=== PATIENT | female | born 1960 | race Two or more races ===

== ENCOUNTER 2025-04-18 09:52 | Inpatient (IN) | payer BC, OTHER ==
[~2025-04-18] VITALS: Ht 165.1 cm; Wt 104.0 kg
--- NOTE | 2025-04-18 10:15 | ED.PDOC ---
History of Present Illness HPI Comments 65/F presents to the ER w/ prior MHx of HTN:SHx of Right foot Sx and the c/c of LE swelling. Pt reports on having ilateral LE swelling associated w/ ABD "swelling" and SOB for the past 3 weeks.In triage the pt had a BP of 208/122. PCP is Dr. Ford. Denies any other symptoms at this time. Denies chills, fever, N/V/D, CP. Denies any other associated symptom's, modifiers, or recent injuries or sick contact at this time. Chief Complaint: Extremity Swelling Time Seen by MD: 10:10 Reviewed Notes: Nurses Notes, Medications, Allergies Allergies: Coded Allergies: NO KNOWN ALLERGIES (Unverified , 04/18/25) Information Source: Patient Mode of Arrival: Ambulatory Severity: Moderate Timing: Weeks Duration: Since onset Prehospital treatment: None Past Medical History PAST MEDICAL HISTORY: HTN Surgical History (Other): Right Foot Sx LINT CLEANER History: No Pertinent LINT CLEANER History Family History Family History: Reviewed,noncontributory to illness, Unknown Social History Smoker: Non-Smoker Alcohol: Occasionally Drugs: Denies Drug Use Lives In: Home Constitutional: denies: chills, diaphoresis, fatigue, fever, malaise, sweats, weakness, others EENTM: denies: blurred vision, double vision, ear bleeding, ear discharge, ear drainage, ear pain, ear ringing, eye pain, eye redness, hearing loss, mouth pain, mouth swelling, nasal discharge, nose bleeding, nose congestion, nose pain, photophobia, tearing, throat pain, throat swelling, voice changes, others Respiratory: reports: shortness of breath; denies: cough, hemoptysis, orthopnea, SOB at rest, SOB with excertion, stridor, wheezing, others Cardiovascular: reports: edema (Bilateral LE); denies: chest pain, dizzy spells, diaphoresis, Dyspnea on exertion, irregular heart beat, left arm pain, lightheadedness, palpitations, PND, syncope, others Gastrointestinal: reports: abdomen distended; denies: abdominal pain, blood streaked bowels, constipated, diarrhea, dysphagia, difficulty swallowing, hematemesis, melena, nausea, poor appetite, poor fluid intake, rectal bleeding, rectal pain, vomiting, others Genitourinary: denies: abnormal vagina bleeding, burning, dyspareunia, dysuria, flank pain, frequency, hematuria, incontinence, pain, , vagina discharge, urgency, others Neurological: denies: dizziness, fainting, headache, left sided numbness, left sided weakness, numbness, paresthesia, pre-existing deficit, right sided numbness, right sided weakness, seizure, speech problems, tingling, tremors, weakness, others Musculoskeletal: denies: back pain, gout, joint pain, joint swelling, muscle pain, muscle stiffness, neck pain, others Integumetry: denies: bruises, change in color, change in hair/nails, dryness, laceration, lesions, lumps, rash, wounds, others Allergic/Immunocompromised: denies: Difficulty Healing, Frequent Infections, Hives, Itching, others Hematologic/Lymphatic: denies: anemia, blood clots, easy bleeding, easy bruising, swollen glands, others Endocrine: denies: excessive hunger, excessive sweating, excessive thirst, excessive urination, flushing, intolerance to cold, intolerance to heat, unexplained weight gain, unexplained weight loss, others Psychiatric: denies: anxiety, bipolar disorder, depression, hopeless, panic disorder, schizophrenia, sleepless, suicidal, others All Other Systems: Reviewed and Negative Physical Exam General Appearance: Moderate Distress, Obese HEENT: Normal ENT Inspection, Pharynx Normal, TMs Normal Neck: Full Range of Motion, Non-Tender, Normal, Normal Inspection Respiratory: Chest Non-Tender, No Accessory Muscle Use, No Respiratory Distress, Rales Cardiovascular: No Edema, No JVD, No Murmur, No Gallop, Normal Peripheral Pulses, Regular Rate/Rhythm Breast Exam: Deferred Gastrointestinal: No Organomegaly, Non Tender, No Pulsatile Mass, Normal Bowel Sounds, Soft Genitalia: Deferred Pelvic: Deferred Rectal: Deferred Extremities: No calf tenderness, Normal capillary refill, Non-tender, Pedal edema Musculoskeletal : Apperance: Normal Neurologic: Alert, orthodontist II-XII nml as Tested, No Motor Deficits, Normal Affect, Normal Mood, No Sensory Deficits Cerebellar Function: Normal Reflexes: Normal Skin: Dry, Normal Color, Warm Lymphatic: No Adenopathy Was a procedure done? Was a procedure done?: No EKG EKG : Pulse Rate (adult): 83 [place]: Normal Cardiac Rhythm: NSR Block: None Hypertrophy: None ST: Normal Differential Dx Considerations may include: Congestive heart failure, acute on chronic diastolic heart failure, ACS, OH X-Ray, Labs, Meds, VS Vital Signs Date Time Temp Pulse Resp B/P (MAP) Pulse Ox O2 Delivery O2 Flow Rate FiO2 04/18/25 11:04 98.0 81 20 190/107 (134) 97 98.0 04/18/25 10:15 83 04/18/25 10:00 83 04/18/25 09:56 87 208/122 (150) 04/18/25 09:53 98.1 89 20 203/111 95 98.1 Lab Test 04/18/25 10:28 Range/Units White Blood Count 4.5 4.4-10.8 10^3/uL Red Blood Count 4.75 4.0-5.20 10^6/uL Hemoglobin 14.0 12.2-16.2 g/dL Hematocrit 42.5 36.0-46.0 % Mean Corpuscular Volume 89.4 80.0-100.0 fL Mean Corpuscular Hemoglobin 29.4 28.0-32.0 pg Mean Corpuscular Hemoglobin Concent 32.9 32.0-36.0 g/dL Red Cell Distribution Width 15.6 H 11.8-14.3 % Platelet Count 129 L 140-450 10^3/uL Mean Platelet Volume 8.3 6.9-10.8 fL Neutrophils (%) (Auto) 65.0 37.0-80.0 % Lymphocytes (%) (Auto) 22.5 10.0-50.0 % Monocytes (%) (Auto) 10.5 0.0-12.0 % Eosinophils (%) (Auto) 0.8 0.0-7.0 % Basophils (%) (Auto) 1.2 0.0-2.0 % Neutrophils # (Auto) 2.9 1.6-8.6 10 ^3/uL Lymphocytes # (Auto) 1.0 0.4-5.4 10 ^3/uL Monocytes # (Auto) 0.5 0-1.3 10 ^3/uL Eosinophils # (Auto) 0 0-0.8 10 ^3/uL Basophils # (Auto) 0.1 0-0.2 10 ^3/uL Nucleated Red Blood Cells 0.1 % Sodium Level 137 136-145 mmol/L Potassium Level 4.0 3.5-5.1 mmol/L Chloride Level 101 98-107 mmol/L Carbon Dioxide Level 25 20-31 mmol/L Anion Gap 11 5-15 Blood Urea Nitrogen 7 L 9-23 mg/dL Creatinine 0.53 L 0.550-1.02 mg/dL Glomerular Filtration Rate Calc 102 >90 mL/min BUN/Creatinine Ratio 13.2 10.0-20.0 Serum Glucose 86 74-106 mg/dL Calcium Level 9.2 8.7-10.4 mg/dL Troponin I High Sensitivity 7 </=34 ng/L B-Type Natriuretic Peptide Pending The chest x-ray shows: IMPRESSION: Cardiomegaly with mild pulmonary vascular congestion. The patient's CBC is within normal limits The chemistry panel is within normal limits. The troponin level is negative The patient was given Lasix 40 mg IV push. The patient continues to have significant amount of pedal edema. A cardiology consult will be obtained. The patient is being admitted to the hospitalist. Images Reviewed?: Images reviewed and evaluated by me Time of 1ST Reevaluation: 10:40 Reevaluation 1ST: Unchanged Patient Education/Counseling: Diagnosis, Treatment, Prognosis Family Education/Counseling: No Family Present SEPSIS Sepsis Screen Date sepsis recognized/suspect: Apr 18, 2025 Time Sepsis recognized/suspect: 09 Recent Procedure: No On Antibiotic Therapy: No Respiratory Rate >20: No Heart Rate >90: No Temp<36 C (96.8 F) or >38.3 C: No SBP <90 or MAP <65 mmHG: No New Acute Mental Status Change: No Is the patient on CPAP, BIPAP,: No Physician Orders B-Type Natriuretic Peptide (04/18/25 10:08) Urinalysis (04/18/25 10:08) Chest Portable (04/18/25 10:08) Heplock Iv (04/18/25 10:08) Pulse Oximetry (04/18/25 10:08) Social Work Professor (04/18/25 10:08) Blood Pressure (04/18/25 10:08) Troponin-I Hs (04/18/25 11:08) Troponin-I Hs (04/18/25 13:08) Electrocardigram (04/18/25 11:13) Vital Signs Date Time Temp Pulse Resp B/P (MAP) Pulse Ox O2 Delivery O2 Flow Rate FiO2 04/18/25 11:04 98.0 81 20 190/107 (134) 97 98.0 04/18/25 10:15 83 04/18/25 10:00 83 04/18/25 09:56 87 208/122 (150) 04/18/25 09:53 98.1 89 20 203/111 95 98.1 Laboratory Tests Test 04/18/25 10:28 White Blood Count 4.5 10^3/uL (4.4-10.8) Departure 1 Departure Time of Disposition: 11:06 Impression: Primary Impression: Acute diastolic heart failure Additional Impression: Pedal edema Disposition: ADMITTED INPATIENT Admit to: Tele Condition: Fair Critical Care Note Critical Care Time?: Yes (45 min-critical care time only) Stability Stability form required: Yes Unstable for transfer: Telemetry monitoring (Telemetry monitoring required), ED Physician Assesment (Clinical assesment) Heart Score Heart Score: Heart Score Response (Comments) Value History N/A 0 EKG N/A 0 Age N/A 0 Risk Factors N/A 0 Troponin N/A 0 Total 0 I personally scribed for ALTHEA GRIFFITHS MD ([email or web address]) on 04/18/25 at 10:15. Electronically submitted by Cj Morales ([email or web address]). ALTHEA GRIFFITHS MD Apr 18, 2025 10:15
[2025-04-18 10:45] LABS: Chloride 101 mmol/L (98-107); Potassium 4.0 mmol/L (3.5-5.1); Sodium 137 mmol/L (136-145)
[2025-04-18 10:46] LABS: Anion Gap 11 (5-15); Calcium 9.2 mg/dL (8.7-10.4); Carbon Dioxide 25 mmol/L (20-31)
--- NOTE | 2025-04-18 10:47 | DVH ---
EXAM: XY CHEST PORTABLE Indication: sob Technique: Single frontal view of the chest was obtained Comparison: None FINDINGS: Lines and Tubes: None Lungs: No focal consolidation. Mild pulmonary vascular congestion. Pleura: No effusion. No pneumothorax. Cardiomediastinal contours: Cardiomegaly. Bones: No acute osseous abnormality. IMPRESSION: Cardiomegaly with mild pulmonary vascular congestion.
[2025-04-18 10:48] LABS: Hematocrit 42.5 % (36.0-46.0); Hemoglobin 14.0 g/dL (12.2-16.2); Mean Corpuscular Hemoglobin 29.4 pg (28.0-32.0); Mean Corpuscular Volume 89.4 fL (80.0-100.0); Nucleated Red Blood Cells % 0.1 %
[2025-04-18 10:51] LABS: BUN/Creatinine Ratio 13.2 (10.0-20.0); Glucose 86 mg/dL (74-106)
[2025-04-18 10:58] LABS: Blood Urea Nitrogen 7 mg/dL (9-23)
[2025-04-18] MEDS: FUROSEMIDE 40 MG/4 ML VIAL IV ONE (11:17)
[2025-04-18 11:18] VITALS: PULSE 81; RESP 20; O2SAT 97
--- NOTE | 2025-04-18 13:48 | ECG ---
[facility] Test Date: 2025-04-18 Test Time: 10:00:34 Pat Name: CHRISTIE KAUFMAN Department: ED Room: [facility] Gender: F Construction Equipment Technician: BELL : 1960 Requested By: ALTHEA GRIFFITHS Order Number: [id number] Reading MD: Be Erazo Measurements Intervals [place] Rate: 83 P: 53 TN: 190 QRS: 38 QRSD: 96 T: 86 QT: 413 QTc: 486 Interpretive Statements Sinus rhythm Nonspecific T abnrm, anterolateral leads Borderline prolonged QT interval Electronically Signed On 04-23-2025 14:18:11 PDT by Be Erazo Please click the below link to view image of tracing.
[2025-04-18] MEDS ORDERED: MORPHINE SULFATE INJ 2 MG/ml SYRG IV PRN ×2 (17:00)
[2025-04-18] MEDS ORDERED: NITROGLYCERIN 0.4 MG SL TAB SL PRN ×2 (17:00)
--- NOTE | 2025-04-18 17:52 | DVHHPRES ---
History of Present Illness Resident Creating Document: SANAZ HONG RESIDENT History of Present Illness Yolanda Ribeiro is a 65 year old female who presented to the ED with the complaint of swelling in both legs since 1 month. Patient mentions she had swelling in both lower legs which has progressed to upper legs and lower abdomen. Patient mentions elevation of the feet reduces the swelling. She denies any shortness of breath, fatigue and weakness. Patient also mentions she has had pain in the back since the last 1 week. Patient states that she has the pain on and off, is 5/10 in intensity and nonradiating. She denies any, burning sensation on micturition. Denies any recent fever or chills. Patient mentions she had an abnormal EKG 10 years back following which angiogram was done, which was found to be normal and no stenting was required. Patient was started on lasix 40mg iv bid for the pedal edema. Labs showed raised bilirubin,AST,ALT and ALP. Liver ultrasound was ordered to rule out hepatic cause of the edema. Past medical history: Hypertension Past surgical history: Tubal ligation Home medications: Lisinopril 40 once daily, metoprolol 50 mg once daily, sertraline 100 mg once daily, valacyclovir 500 mg once daily Social & Personal history: lives at home with family Smoking:denies alcohol:drinks 4 glasses of wine everyday for the last 15-20 years Allergies: no known allergies Cardiovascular: HTN Past Surgical History: Tubal Ligation Smoke: No ALCOHOL: occassional Drugs: None Lives: with Family Review of Systems Review of Systems Patient seen and examined at bedside. Patient is alert and oriented to time, place person and responding to all questions. Eyes: No Pain, No Vision change, No Conjunctivae inflammation, No Eyelid inflammation, No Redness ENT: No Ear pain, No Ear discharge, No Nose pain, No Nose discharge, No Nose congestion, No Mouth pain, No Mouth swelling, No Throat pain, No Throat swelling Cardiovascular: No Chest Pain, No Palpitations, No Orthopnea, No Paroxysmal No Dyspnea, No Edema, No Lt Headedness Respiratory: No Cough, No Dry, No Shortness of breath, No SOB with exertion, No Wheezing, No Hemoptysis, No Pleuritic Pain, No Sputum Gastrointestinal: No Nausea, No Vomiting, No Abdominal Pain, No Diarrhea, No Constipation, No Melena, No Hematochezia Genitourinary: No Dysuria, No Frequency, No Incontinence, No Hematuria, No Retention Allergies: Coded Allergies: NO KNOWN ALLERGIES (Unverified , 04/18/25) Medications Current Medications Medications Dose Ordered Sig/Ovidio Route Start Time Stop Time Status Last Admin Dose Admin Nitroglycerin 0.4 mg Q5MINP PRN SL 04/18/25 17:00 UNV Morphine Sulfate 2 mg Q30M PRN IV 04/18/25 17:00 UNV Acetaminophen 650 mg Q6HP PRN PO 04/18/25 17:00 UNV Enoxaparin Sodium 40 mg DAILY SC 04/18/25 17:00 UNV Nitroglycerin 0.4 mg Q5MINP PRN SL 04/18/25 17:00 UNV Morphine Sulfate 2 mg Q30M PRN IV 04/18/25 17:00 UNV Exam Vital Signs Vital Signs Date Time Temp Pulse Resp B/P (MAP) Pulse Ox O2 Delivery O2 Flow Rate FiO2 04/18/25 11:18 81 20 97 Room Air* 0 21 04/18/25 11:17 190/107 04/18/25 11:04 98.0 98.0 Exam General Appearance: Cooperative. Well developed. Well nourished. NAD Head Exam: Normal inspection Neck Exam: Normal inspection. Non-tender. Normal alignment Pulmonary/Respiratory: Chest non-tender. Clear bilateral breath sounds, no crackles, no wheezing. Cardiovascular/Chest: Regular rate and rhythm. No murmurs. No JVD. Peripheral Pulses: 2+ Radial (R). 2+ Radial (L). Abdominal Exam: Normal bowel sounds. Soft. normal abdomen, no visible veins, Nontender. No hepatospenomegaly. No masses.bruise prsesnt on lower abdomen around 3-4 cm X 2-3 cm Lower extremities:bilateral 2+ lower extremity edema,no erythema or warmth Neuro/Mental Status: A&O x4. Coherent. Thoughts/Psych: Normal thought pattern. Appropriate mood and affect. Good judgement and insight Skin Exam: Normal inspection. Normal color. Warm. Dry Labs/Xrays Labs Test 04/18/25 13:35 04/18/25 10:28 Range/Units Troponin I High Sensitivity 4 </=34 ng/L White Blood Count 4.5 4.4-10.8 10^3/uL Red Blood Count 4.75 4.0-5.20 10^6/uL Hemoglobin 14.0 12.2-16.2 g/dL Hematocrit 42.5 36.0-46.0 % Mean Corpuscular Volume 89.4 80.0-100.0 fL Mean Corpuscular Hemoglobin 29.4 28.0-32.0 pg Mean Corpuscular Hemoglobin Concent 32.9 32.0-36.0 g/dL Red Cell Distribution Width 15.6 H 11.8-14.3 % Platelet Count 129 L 140-450 10^3/uL Mean Platelet Volume 8.3 6.9-10.8 fL Neutrophils (%) (Auto) 65.0 37.0-80.0 % Lymphocytes (%) (Auto) 22.5 10.0-50.0 % Monocytes (%) (Auto) 10.5 0.0-12.0 % Eosinophils (%) (Auto) 0.8 0.0-7.0 % Basophils (%) (Auto) 1.2 0.0-2.0 % Neutrophils # (Auto) 2.9 1.6-8.6 10 ^3/uL Lymphocytes # (Auto) 1.0 0.4-5.4 10 ^3/uL Monocytes # (Auto) 0.5 0-1.3 10 ^3/uL Eosinophils # (Auto) 0 0-0.8 10 ^3/uL Basophils # (Auto) 0.1 0-0.2 10 ^3/uL Nucleated Red Blood Cells 0.1 % Sodium Level 137 136-145 mmol/L Potassium Level 4.0 3.5-5.1 mmol/L Chloride Level 101 98-107 mmol/L Carbon Dioxide Level 25 20-31 mmol/L Anion Gap 11 5-15 Blood Urea Nitrogen 7 L 9-23 mg/dL Creatinine 0.53 L 0.550-1.02 mg/dL Glomerular Filtration Rate Calc 102 >90 mL/min BUN/Creatinine Ratio 13.2 10.0-20.0 Serum Glucose 86 74-106 mg/dL Calcium Level 9.2 8.7-10.4 mg/dL B-Type Natriuretic Peptide 268.19 0-100 pg/mL SEPSIS Sepsis Screen Date sepsis recognized/suspect: Apr 18, 2025 Time Sepsis recognized/suspect: 954 Recent Procedure: No On Antibiotic Therapy: No Respiratory Rate >20: No Heart Rate >90: No Temp<36 C (96.8 F) or >38.3 C: No SBP <90 or MAP <65 mmHG: No New Acute Mental Status Change: No Is the patient on CPAP, BIPAP,: No Physician Orders Urinalysis (04/18/25 10:08) Chest Portable (04/18/25 10:08) Heplock Iv (04/18/25 10:08) Pulse Oximetry (04/18/25 10:08) Flight Radio Operator (04/18/25 10:08) Blood Pressure (04/18/25 10:08) Admit (04/18/25 16:49) Nitroglycerin Sublingual (Ntrostat Subli (04/18/25 17:00) Morphine Sulfate Injection (04/18/25 17:00) Stat Ekg For Chest Pain (04/18/25 16:49) Notify Md Of Changes From Base (04/18/25 16:49) Metal Lather For 24 Hours (04/18/25 16:49) Emergency Dysrhythmia Protocol (04/18/25 16:49) Rhythm Strips Once Every Shift (04/18/25 16:49) Admit (04/18/25 16:52) Code Status (04/18/25 16:52) Complete Blood Count (04/19/25 04:00) Comprehensive Metabolic Panel (04/19/25 04:00) Cardiac Diet-2gna,Lofat,Lochol (04/18/25 Dinner) Echo 2d Mode Cardiac Dop (04/18/25 16:52) Condition: Unstable (04/18/25 16:52) Acetaminophen Tablet (Tylenol Tablet) (04/18/25 17:00) Enoxaparin Sodium (Lovenox) (04/18/25 17:00) Nitroglycerin Sublingual (Ntrostat Subli (04/18/25 17:00) Morphine Sulfate Injection (04/18/25 17:00) Oxygen By Nasal Cannula (04/18/25 16:52) Emergency Dysrhythmia Protocol (04/18/25 16:52) Rhythm Strips Once Every Shift (04/18/25 16:52) Thyroid Stimulating Hormone (04/18/25 16:55) Free T4 (Free Thyroxine) (04/18/25 16:55) Cyclobenzaprine Tablet (Flexeril Tablet) (04/18/25 22:00) Vitamin D, 25-Hydroxy (04/18/25 16:57) Vitamin B12 (04/18/25 16:57) Urinalysis (04/18/25 17:03) Lisinopril Tablet (Zestril Tablet) (04/19/25 10:00) Furosemide Injection (Lasix Injection) (04/18/25 22:00) Vital Signs Date Time Temp Pulse Resp B/P (MAP) Pulse Ox O2 Delivery O2 Flow Rate FiO2 04/18/25 11:18 81 20 97 Room Air* 0 21 04/18/25 11:17 190/107 04/18/25 11:04 98.0 81 20 190/107 (134) 97 98.0 04/18/25 10:15 83 04/18/25 10:00 83 04/18/25 09:56 87 208/122 (150) 04/18/25 09:53 98.1 89 20 203/111 95 98.1 Laboratory Tests Test 04/18/25 10:28 White Blood Count 4.5 10^3/uL (4.4-10.8) Medications Medications Dose Ordered Sig/Ovidio Route Start Time Stop Time Status Last Admin Dose Admin Furosemide 40 mg ONCE ONCE IV 04/18/25 10:15 04/18/25 10:17 DC 04/18/25 11:17 40 MG Assessment/Plan Assessment/Plan # Possible Acute Systolic/Diastolic CHF- Lasix IV # Pulm Edema- Lasix IV, repeat CXR # Hypertensive Urgency- Monitor and adjust meds as needed. Get ECHO # Rule out Hepatocellular Carcinoma- CT Abd/Pelvis, Hep Panel. AFP DVT prophylaxis: Lovenox 40mg daily sc Goals of care: Full code, discussed for >23 minutes Plan discussed with Dr Souza Plan discussed with: Patient, Spouse My Orders Orders - SANAZ HONG RESIDENT Procedure Category Date Status Time Admit ADMIT 04/18/25 Transmitted 16:49 Nitroglycerin PHA 04/18/25 Logged Sublingual (Ntrostat 17:00 Morphine Sulfate PHA 04/18/25 Logged Injection 17:00 Stat Ekg For Chest JAJA 04/18/25 In Process Pain 16:49 Notify Md Of Changes JAJA 04/18/25 In Process From Base 16:[address] [facility] 04/18/25 In Process 24 Hours 16:[address] [facility] 04/18/25 In Process Protocol 16:49 Rhythm Strips [address] [facility] 04/18/25 In Process Every Shift 16:49 Admit ADMIT 04/18/25 Transmitted 16:52 Code Status CODE 04/18/25 Transmitted 16:52 Complete Blood Count LAB 04/19/25 Verified 04:00 Comprehensive LAB 04/19/25 Verified Metabolic Panel 04:00 Cardiac DIET 04/18/25 Transmitted Diet-2gna,Lofat,Lochol Dinner Echo 2d Mode Cardiac US 04/18/25 Logged DOP 16:52 Condition: Unstable [facility] 04/18/25 In Process 16:52 Acetaminophen Tablet PHA 04/18/25 Logged (Tylenol Tablet) 17:00 Enoxaparin Sodium PHA 04/18/25 Logged (Lovenox) 17:00 Nitroglycerin PHA 04/18/25 Logged Sublingual (Ntrostat 17:00 Morphine Sulfate PHA 04/18/25 Logged Injection 17:00 Oxygen By Nasal RT 04/18/25 Transmitted Cannula 16:[address] [facility] 04/18/25 In Process Protocol 16:52 Rhythm Strips Once [facility] 04/18/25 In Process Every Shift 16:52 Thyroid Stimulating LAB 04/18/25 Logged Hormone 16:55 Free T4 (Free LAB 04/18/25 Logged Thyroxine) 16:55 Cyclobenzaprine PHA 04/18/25 Logged Tablet (Flexeril 22:00 Vitamin D, 25-Hydroxy LAB 04/18/25 Logged 16:57 Vitamin B12 LAB 04/18/25 Logged 16:57 Urinalysis LAB 04/18/25 Transmitted 17:03 Date of Service: Apr 18, 2025 Billing Provider: DEE SOUZA MD Common Visit Codes: 25240-[id number] INP/OBS CARE (HIGH) Secondary Visit Codes: 02545-[id number] CARE PLAN 30 MINUTES SANAZ HONG RESIDENT Apr 18, 2025 17:52 DEE SOUZA MD Apr 19, 2025 09:37
[2025-04-18] MEDS ORDERED: LISI40TA16 PO (18:02)
[2025-04-18] MEDS ORDERED: VALA1TAB PO (18:03)
[2025-04-18] MEDS ORDERED: SERT100T PO (18:03)
[2025-04-18] MEDS ORDERED: METO-158 PO (18:04)
[2025-04-18 18:06] LABS: Alanine Aminotransferase 61.0 U/L (7-40); Albumin 4.0 g/dL (3.2-4.8); Alkaline Phosphatase 161.0 U/L (46-116); Bilirubin, Direct 0.8 mg/dL (<0.3); Bilirubin, Total 1.8 mg/dL (0.2-1.0); Total Protein 7.3 g/dL (5.7-8.2)
[2025-04-18] MEDS: FUROSEMIDE 40 MG/4 ML VIAL IV SCH (18:15)
[2025-04-18] MEDS: ENOXAPARIN SOD 40 MG/0.4 ML SYRINGE SC SCH (18:15)
[2025-04-18] MEDS: LISINOPRIL 20 MG TAB PO ONE (18:16)
[2025-04-18 20:32] VITALS: BP 146/72; PULSE 64; PULSE 67; RESP 18; TEMP 98; O2SAT 62; O2SAT 95
[2025-04-18 21:00] VITALS: BP 169/102; PULSE 88; RESP 16; TEMP 98.2; O2SAT 96
--- NOTE | 2025-04-18 21:23 | DVH ---
INDICATION: transamnitis TECHNIQUE: Multiple real-time sonographic images of the abdomen were obtained. COMPARISON: None FINDINGS: Hepatic parenchyma demonstrates coarse echogenic appearance consistent with steatosis. The liver measures 12.53 cm. No intrahepatic biliary ductal dilatation is noted. Hypoechoic mass right l obe of the liver measuring 5.38 x 4.95 by [address] of the abdomen with contrast. The gallbladder wall measures 2.38 mm cm and is unremarkable. No gallstones or sludge is seen. The common duct measures 5.35 mm cm and is unremarkable. No pericholecystic fluid is noted. Negative so nographic Lopez's sign The right kidney measures 10.78 cm. No hydronephrosis. The pancreas is not well visualized due to obscuration from bowel gas. The visualized portions of the IVC and aorta are grossly unremarkable. IMPRESSION: 1. 12.5 cm liver with parenchymal changes consistent with steatosis 2. 5.4 x 4.9 x 4.5 cm ill-defined heterogeneous mass right lobe of the liver consider re-evaluation w ith CT abdomen with contrast.
[2025-04-18] MEDS: ERGOCALCIFEROL 50,000 UNIT(1.25MG) CAP PO SCH (21:26)
[2025-04-18] MEDS: CYCLOBENZAPRINE HCL 10 MG TAB PO ONE (21:26)
[2025-04-19] VITALS (7 sets, daily range): BP systolic 123–160; BP diastolic 65–91; PULSE 75–86; RESP 16–18; TEMP 97.7–98.5; O2SAT 94–97
[2025-04-19 07:13] LABS: Hematocrit 38.8 % (36.0-46.0); Hemoglobin 13.2 g/dL (12.2-16.2); Mean Corpuscular Hemoglobin 30.3 pg (28.0-32.0); Mean Corpuscular Volume 88.8 fL (80.0-100.0); Nucleated Red Blood Cells % 0.2 %
[2025-04-19 07:19] LABS: Anion Gap 12 (5-15); BUN/Creatinine Ratio 13.3 (10.0-20.0); Calcium 8.8 mg/dL (8.7-10.4); Carbon Dioxide 29 mmol/L (20-31); Sodium 139 mmol/L (136-145); Total Protein 6.4 g/dL (5.7-8.2)
[2025-04-19 07:21] LABS: Albumin 3.5 g/dL (3.2-4.8)
[2025-04-19 07:35] LABS: Alanine Aminotransferase 52 U/L (7-40); Alkaline Phosphatase 138 U/L (46-116); Bilirubin, Total 1.6 mg/dL (0.2-1.0); Blood Urea Nitrogen 8 mg/dL (9-23); Chloride 98 mmol/L (98-107); Glucose 69 mg/dL (74-106); Potassium 3.2 mmol/L (3.5-5.1)
--- NOTE | 2025-04-19 09:03 | DVH ---
US BiLat Lower DVT HISTORY: To rule out dVT COMPARISON: None TECHNIQUE: Duplex doppler evaluation of the deep venous system of the lower extremity from the common femoral veins, superficial femoral vein, great saphenous vein, deep femoral vein, popliteal vein, an d calf veins, including color doppler and spectral/pulsed waveform analysis, was performed. FINDINGS: Right: - Common femoral vein: Compressible - Deep femoral vein: Compressible - Femoral vein: Compressible - Popliteal vein: Compressible - Other: Nothing Left: - Common femoral vein: Compressible - Deep femoral vein: Compressible - Femoral vein: Compressible - Popliteal vein: Compressible - Other: Nothing IMPRESSION: No right or left lower extremity deep venous thrombosis.
[2025-04-19] MEDS: LISINOPRIL 20 MG TAB PO SCH (11:00)
[2025-04-19] MEDS: IOHEXOL 300 MG/ML 100ML BOTTLE IJ ONE (11:42)
[2025-04-19 12:09] LABS: INR 1.11 (0.9-1.15); Partial Thromboplastin Time 29.8 SEC (24.5-34.5); Prothrombin Time 11.6 sec (9.3-11.8)
[2025-04-19] MEDS: hydrALAZINE HCL 20 MG/ML VL IV PRN (13:22)
[2025-04-19] MEDS: ACETAMINOPHEN 325 MG TAB PO PRN (13:23)
--- NOTE | 2025-04-19 14:11 | DVH ---
Indication: LIVER MASS Technique: CT axial images of the abdomen and pelvis are obtained with and without contrast. Coronal and sagittal reformats were obtained. Comparison: 04/18/2025 FINDINGS: Cardiomegaly lung bases demonstrate atelectasis. Renal glands are unremarkable. Spleen measures 13 cm AP. Pancreas unremarkable. Cholelithiasis. Cirrhotic morphology liver. There is a right hepatic dome hypervascular lesion measuring 9.5 x 7 cm which demonstrates hypervascu larity on the portal venous and 5 minute delayed images. The kidneys demonstrate no hydronephrosis. Stomach is partially distended. Small bowel loops are normal in caliber. Moderate volume stool in the colon. Normal appendix. Abdominal aortic atherosclerotic disease. Bladder is partially distended. No free pelvic fluid. No i nguinal lymphadenopathy. Soft tissue edema/ anasarca. Moderate lumbar degenerative disc disease and facet hypertrophic changes. IMPRESSION: Hypervascular lesion on the arterial, venous and delayed phases within the right hepatic lobe measuri ng 9.5 x 7 cm. Recommend multiphasic MRI abdomen with and without contrast to further characterize. N o definitive washout seen. Correlate with alpha fetoprotein levels. Consideration could also be given to tissue sampling Cirrhotic morphology liver, splenomegaly. Cholelithiasis. Atherosclerotic disease. Moderate volume stool within the colon. Other findings as
--- NOTE | 2025-04-19 22:58 | DVHPNRES ---
Progress Note Date Seen: Apr 19, 2025 Resident Creating Document: SANAZ HONG RESIDENT Medical Necessity Reason Pt with a Central, PICC or Fol: No Subjective Review of Systems Yolanda Ribeiro is a 65 year old female who presented to the ED with the complaint of swelling in both legs since 1 month. Patient mentions she had swelling in both lower legs which has progressed to upper legs and lower abdomen. Patient mentions elevation of the feet reduces the swelling. She denies any shortness of breath, fatigue and weakness. Patient also mentions she has had pain in the back since the last 1 week. Patient states that she has the pain on and off, is 5/10 in intensity and nonradiating. She denies any, burning sensation on micturition. Denies any recent fever or chills. Patient mentions she had an abnormal EKG 10 years back following which angiogram was done, which was found to be normal and no stenting was required. Patient was started on lasix 40mg iv bid for the pedal edema. Labs showed raised bilirubin,AST,ALT and ALP. Chest x-ray showed cardiomegaly with pulmonary vascular congestion. Past medical history: Hypertension Past surgical history: Tubal ligation Home medications: Lisinopril 40 once daily, metoprolol 50 mg once daily, sertraline 100 mg once daily, valacyclovir 500 mg once daily Social & Personal history: lives at home with family Smoking:denies alcohol:drinks 4 glasses of wine everyday for the last 15-20 years Allergies: no known allergies Cardiovascular: HTN Past Surgical History: Tubal Ligation Smoke: No ALCOHOL: occassional Drugs: None Lives: with Family Patient seen and examined at bedside. Patient is alert and oriented to time, place person and responding to all questions. Eyes: No Pain, No Vision change, No Conjunctivae inflammation, No Eyelid inflammation, No Redness ENT: No Ear pain, No Ear discharge, No Nose pain, No Nose discharge, No Nose congestion, No Mouth pain, No Mouth swelling, No Throat pain, No Throat swelling Cardiovascular: No Chest Pain, No Palpitations, No Orthopnea, No Paroxysmal Dyspnea, No Edema, No Lt Headedness Respiratory: No Cough, No Dry, No Shortness of breath, No SOB with exertion, No Wheezing, No Hemoptysis, No Pleuritic Pain, No Sputum Gastrointestinal: No Nausea, No Vomiting, No Abdominal Pain, No Diarrhea, No Constipation, No Melena, No Hematochezia Genitourinary: No Dysuria, No Frequency, No Incontinence, No Hematuria, No Retention Allergies: Coded Allergies: NO KNOWN ALLERGIES (Unverified , 04/18/25) 04/19/25-the patient was seen at bedside today. All labs and charts were reviewed. Liver ultrasound showed 5.4 x 4.9 x 4.5 cm ill-defined heterogeneous mass right lobe of the liver.CT abdomen with contrast and alpha-fetoprotein were ordered to evaluate the liver mass. Duplex venous study showed No right or left lower extremity deep venous thrombosis. Objective vital signs Vital Sign Date Time Temp Pulse Resp B/P (MAP) Pulse Ox O2 Delivery O2 Flow Rate FiO2 04/19/25 17: 123/75 04/19/25 16:52 98.2 86 18 94 98.2 04/19/25 08:00 Room Air* 0 21 Total Intake and Output 04/19/25 04/19/25 04/19/25 02:30 10:30 18:30 Intake Total 550 ml 400 ml Balance 550 ml 400 ml medications Current Medications Medications Dose Ordered Sig/Ovidio Route Start Time Stop Time Status Last Admin Dose Admin Nitroglycerin 0.4 mg Q5MINP PRN SL 04/18/25 17:00 UNV Morphine Sulfate 2 mg Q30M PRN IV 04/18/25 17:00 Acetaminophen 650 mg Q6HP PRN PO 04/18/25 17:00 04/19/25 13:23 650 MG Enoxaparin Sodium 40 mg DAILY SC 04/18/25 17:00 04/19/25 10:00 40 MG Nitroglycerin 0.4 mg Q5MINP PRN SL 04/18/25 17:00 Morphine Sulfate 2 mg Q30M PRN IV 04/18/25 17:00 UNV Lisinopril 40 mg DAILY PO 04/19/25 10:00 04/19/25 11:00 40 MG Furosemide 40 mg BIDD IV 04/18/25 18:00 04/19/25 17:25 40 MG Hydralazine HCl 10 mg Q6HP PRN IV 04/18/25 18:15 04/19/25 13:22 10 MG Ergocalciferol 50,000 unit Q7D PO 04/18/25 18:45 04/18/25 21:26 50,000 UNIT Examination General Appearance: Cooperative. Well developed. Well nourished. NAD Head Exam: Normal inspection Neck Exam: Normal inspection. Non-tender. Normal alignment Pulmonary/Respiratory: Chest non-tender. Clear bilateral breath sounds, no crackles, no wheezing. Cardiovascular/Chest: Regular rate and rhythm. No murmurs. No JVD. Peripheral Pulses: 2+ Radial (R). 2+ Radial (L). Abdominal Exam: Normal bowel sounds. Soft. normal abdomen, no visible veins, Nontender. No hepatospenomegaly. No masses.bruise prsesnt on lower abdomen around 3-4 cm X 2-3 cm Lower extremities:bilateral 2+ lower extremity edema,no erythema or warmth Neuro/Mental Status: A&O x4. Coherent. Thoughts/Psych: Normal thought pattern. Appropriate mood and affect. Good judgement and insight Skin Exam: Normal inspection. Normal color. Warm. Dry laboratory and microbiology Laboratory Tests 04/19/25 05:11 Test 04/19/25 05:11 Range/Units Serum Glucose 69 L 74-106 mg/dL Labs and/or images reviewed: Labs reviewed by me, Image(s) reviewed by me Problem List/Assessment/Plan Problem List/Assessment/Plan # Possible Acute Systolic/Diastolic CHF- Lasix IV # Pulm Edema- Lasix IV, repeat CXR # Hypertensive Urgency- Monitor and adjust meds as needed. Get ECHO # Rule out Hepatocellular Carcinoma -liver ultrasound showed 5.4 x 4.9 x 4.5 cm ill-defined heterogeneous mass right lobe of the liver - CT Abd/Pelvis, Hep Panel. AFP DVT prophylaxis: Lovenox 40mg daily sc Goals of care: Full code, discussed for >23 minutes Plan discussed with Dr Souza Plan discussed with: Patient My Orders My Orders Orders - SANAZ HONG RESIDENT Procedure Category Date Status Time Ct Ab Pelvis W Wo CT 04/19/25 Resulted Con-Iv Only 12:17 Date of Service: Apr 19, 2025 Billing Provider: DEE SOUZA MD Common Visit Codes: [id number] INP/OBS CARE(HIGH) SANAZ HONG RESIDENT Apr 19, 2025 22:58
[2025-04-20] VITALS (7 sets, daily range): BP systolic 132–173; BP diastolic 75–99; PULSE 82–91; RESP 17–18; TEMP 97.6–98.4; O2SAT 93–98
[2025-04-20 06:34] LABS: Hematocrit 38.6 % (36.0-46.0); Hemoglobin 13.0 g/dL (12.2-16.2); Mean Corpuscular Hemoglobin 30.0 pg (28.0-32.0); Mean Corpuscular Volume 89.1 fL (80.0-100.0); Nucleated Red Blood Cells % 0.3 %
[2025-04-20 06:57] LABS: Anion Gap 11 (5-15); Carbon Dioxide 31 mmol/L (20-31); Chloride 98 mmol/L (98-107); Sodium 140 mmol/L (136-145)
[2025-04-20 06:59] LABS: Calcium 9.1 mg/dL (8.7-10.4)
[2025-04-20 07:03] LABS: BUN/Creatinine Ratio 15.5 (10.0-20.0); Glucose 78 mg/dL (74-106)
[2025-04-20 07:04] LABS: Blood Urea Nitrogen 9 mg/dL (9-23); Potassium 3.3 mmol/L (3.5-5.1)
[2025-04-20] MEDS: POTASSIUM CHL 20 Meq TABLET PO ONE (10:32)
--- NOTE | 2025-04-20 11:27 | DVH ---
INDICATION: rule out any uterine or oarian mass TECHNIQUE: Multiple real-time grayscale transabdominal sonographic images along with color and duplex Doppler of the uterus and ovaries were obtained. Patient refused transvaginal examination COMPARISON: None FINDINGS: The uterus measures 8.3 x 4 x 5.4 cm. Uterus appears heterogeneous. The endometrial stripe measures 9.1 mm. The right ovary NOT visual The left ovary not visualized IMPRESSION: 1. Uterus appears heterogeneous 2. Ovaries not visualized bilaterally. 3. No adnexal masses.
[2025-04-20 12:10] LABS: Hepatitis A Total Antibody Positive (Negative); Hepatitis B Surface Antigen Negative (Negative); Hepatitis C Antibody Negative (Negative)
--- NOTE | 2025-04-20 15:12 | DVHPNRES ---
Progress Note Date Seen: Apr 20, 2025 Resident Creating Document: SANAZ HONG RESIDENT Medical Necessity Reason Pt with a Central, PICC or Fol: No Subjective Review of Systems Yolanda Ribeiro is a 65 year old female who presented to the ED with the complaint of swelling in both legs since 1 month. Patient mentions she had swelling in both lower legs which has progressed to upper legs and lower abdomen. Patient mentions elevation of the feet reduces the swelling. She denies any shortness of breath, fatigue and weakness. Patient also mentions she has had pain in the back since the last 1 week. Patient states that she has the pain on and off, is 5/10 in intensity and nonradiating. She denies any, burning sensation on micturition. Denies any recent fever or chills. Patient mentions she had an abnormal EKG 10 years back following which angiogram was done, which was found to be normal and no stenting was required. Patient was started on lasix 40mg iv bid for the pedal edema. Labs showed raised bilirubin,AST,ALT and ALP. Chest x-ray showed cardiomegaly with pulmonary vascular congestion. Past medical history: Hypertension Past surgical history: Tubal ligation Home medications: Lisinopril 40 once daily, metoprolol 50 mg once daily, sertraline 100 mg once daily, valacyclovir 500 mg once daily Social & Personal history: lives at home with family Smoking:denies alcohol:drinks 4 glasses of wine everyday for the last 15-20 years Allergies: no known allergies Cardiovascular: HTN Past Surgical History: Tubal Ligation Smoke: No ALCOHOL: occassional Drugs: None Lives: with Family Patient seen and examined at bedside. Patient is alert and oriented to time, place person and responding to all questions. Eyes: No Pain, No Vision change, No Conjunctivae inflammation, No Eyelid inflammation, No Redness ENT: No Ear pain, No Ear discharge, No Nose pain, No Nose discharge, No Nose congestion, No Mouth pain, No Mouth swelling, No Throat pain, No Throat swelling Cardiovascular: No Chest Pain, No Palpitations, No Orthopnea, No Paroxysmal Dyspnea, No Edema, No Lt Headedness Respiratory: No Cough, No Dry, No Shortness of breath, No SOB with exertion, No Wheezing, No Hemoptysis, No Pleuritic Pain, No Sputum Gastrointestinal: No Nausea, No Vomiting, No Abdominal Pain, No Diarrhea, No Constipation, No Melena, No Hematochezia Genitourinary: No Dysuria, No Frequency, No Incontinence, No Hematuria, No Retention Allergies: Coded Allergies: NO KNOWN ALLERGIES (Unverified , 04/18/25) 04/19/25- The patient was seen at bedside today. All labs and charts were reviewed. Liver ultrasound showed 5.4 x 4.9 x 4.5 cm ill-defined heterogeneous mass right lobe of the liver.CT abdomen with contrast and alpha-fetoprotein were ordered to evaluate the liver mass. Duplex venous study showed No right or left lower extremity deep venous thrombosis. 04/20/25- The patient was seen at bedside today. There was a mild reduction in the leg swelling. All labs and charts were reviewed. Potassium was 3.3 and was repleted with 40 mEq po once. CA 19-9 was 45 and CA-125 was 39.8, AFP was 9.1. CT abdomen showed hypervascular right hepatic lobe lesion measuring 9.5 x 7 cm, cirrhotic morphology of the liver, cholelithiasis and atherosclerotic vascular disease. IR consult was placed for biopsy of the hepatic mass. Pelvic ultrasound was done which showed heterogeneous appearance of the uterus. Objective vital signs Vital Sign Date Time Temp Pulse Resp B/P (MAP) Pulse Ox O2 Delivery O2 Flow Rate FiO2 04/20/25 13:00 98.0 88 17 173/94 (120) 97 98.0 04/20/25 08:00 Room Air* 0 21 Total Intake and Output 04/19/25 04/19/25 04/20/25 15:00 23:00 07:00 Intake Total 400 ml 600 ml Balance 400 ml 600 ml medications Current Medications Medications Dose Ordered Sig/Ovidio Route Start Time Stop Time Status Last Admin Dose Admin Nitroglycerin 0.4 mg Q5MINP PRN SL 04/18/25 17:00 UNV Morphine Sulfate 2 mg Q30M PRN IV 04/18/25 17:00 Acetaminophen 650 mg Q6HP PRN PO 04/18/25 17:00 04/20/25 12:59 650 MG Enoxaparin Sodium 40 mg DAILY SC 04/18/25 17:00 04/20/25 10:34 40 MG Nitroglycerin 0.4 mg Q5MINP PRN SL 04/18/25 17:00 Morphine Sulfate 2 mg Q30M PRN IV 04/18/25 17:00 UNV Lisinopril 40 mg DAILY PO 04/19/25 10:00 04/20/25 10:33 40 MG Furosemide 40 mg BIDD IV 04/18/25 18:00 04/20/25 05:16 40 MG Hydralazine HCl 10 mg Q6HP PRN IV 04/18/25 18:15 04/20/25 12:50 10 MG Ergocalciferol 50,000 unit Q7D PO 04/18/25 18:45 04/18/25 21:26 50,000 UNIT Examination General Appearance: Cooperative. Well developed. Well nourished. NAD Head Exam: Normal inspection Neck Exam: Normal inspection. Non-tender. Normal alignment Pulmonary/Respiratory: Chest non-tender. Clear bilateral breath sounds, no crackles, no wheezing. Cardiovascular/Chest: Regular rate and rhythm. No murmurs. No JVD. Peripheral Pulses: 2+ Radial (R). 2+ Radial (L). Abdominal Exam: Normal bowel sounds. Soft. normal abdomen, no visible veins, Nontender. No hepatospenomegaly. No masses.bruise prsesnt on lower abdomen around 3-4 cm X 2-3 cm Lower extremities:bilateral 2+ lower extremity edema,no erythema or warmth Neuro/Mental Status: A&O x4. Coherent. Thoughts/Psych: Normal thought pattern. Appropriate mood and affect. Good judgement and insight Skin Exam: Normal inspection. Normal color. Warm. Dry laboratory and microbiology Laboratory Tests 04/20/25 04:35 Test 04/20/25 04:35 Range/Units Serum Glucose 78 74-106 mg/dL Labs and/or images reviewed: Labs reviewed by me, Image(s) reviewed by me Problem List/Assessment/Plan Problem List/Assessment/Plan # Possible Acute Systolic/Diastolic CHF - Lasix IV -Echo ordered,pending report # Pulm Edema - Lasix IV, repeat CXR # Hypertensive Urgency - Monitor and adjust meds as needed # Rule out Hepatocellular Carcinoma #Cholelithiasis -liver ultrasound showed 5.4 x 4.9 x 4.5 cm ill-defined heterogeneous mass right lobe of the liver -CT abdomen showed hypervascular lesion 9.5x7 cm inright hepatic lobe, liver cirrhosis, cholelithiasis, atherosclerotic disease - AFP is within normal limits -CA19-9 is 45, CA125 is 39.8 DVT prophylaxis: Lovenox 40mg daily sc Goals of care: Full code, discussed for >23 minutes Plan discussed with Dr Villalobos Plan discussed with: Patient Date of Service: Apr 20, 2025 Billing Provider: GOPI VILLALOBOS MD Common Visit Codes: [id number] DISCH DAY >30min Date of Service: Apr 20, 2025 Billing Provider: GOPI VILLALOBOS MD Common Visit Codes: [id number] INP/OBS CARE(HIGH) SANAZ HONG RESIDENT Apr 20, 2025 15:12 GOPI VILLALOBOS MD Apr 20, 2025 22:50
[2025-04-20] MEDS: DOCUSATE SOD 100 MG CAP PO ONE (15:53)
[2025-04-20 18:17] LABS: Urine Protein, UAD Negative (Negative)
[2025-04-21] VITALS (7 sets, daily range): BP systolic 120–159; BP diastolic 67–81; PULSE 80–98; RESP 14–18; TEMP 97.8–98.5; O2SAT 93–96
[2025-04-21 10:32] LABS: Anion Gap 11 (5-15); Carbon Dioxide 30 mmol/L (20-31); Potassium 3.6 mmol/L (3.5-5.1); Sodium 137 mmol/L (136-145)
[2025-04-21 10:34] LABS: Calcium 9.0 mg/dL (8.7-10.4)
[2025-04-21 10:38] LABS: BUN/Creatinine Ratio 7.9 (10.0-20.0)
[2025-04-21 10:39] LABS: Blood Urea Nitrogen 5 mg/dL (9-23); Chloride 96 mmol/L (98-107); Glucose 147 mg/dL (74-106)
--- NOTE | 2025-04-21 15:48 | DVHPNRES ---
Progress Note Date Seen: Apr 21, 2025 Resident Creating Document: SANAZ HONG RESIDENT Medical Necessity Reason Pt with a Central, PICC or Fol: No Subjective Review of Systems Yolanda Ribeiro is a 65 year old female who presented to the ED with the complaint of swelling in both legs since 1 month. Patient mentions she had swelling in both lower legs which has progressed to upper legs and lower abdomen. Patient mentions elevation of the feet reduces the swelling. She denies any shortness of breath, fatigue and weakness. Patient also mentions she has had pain in the back since the last 1 week. Patient states that she has the pain on and off, is 5/10 in intensity and nonradiating. She denies any, burning sensation on micturition. Denies any recent fever or chills. Patient mentions she had an abnormal EKG 10 years back following which angiogram was done, which was found to be normal and no stenting was required. Patient was started on lasix 40mg iv bid for the pedal edema. Labs showed raised bilirubin,AST,ALT and ALP. Chest x-ray showed cardiomegaly with pulmonary vascular congestion. Past medical history: Hypertension Past surgical history: Tubal ligation Home medications: Lisinopril 40 once daily, metoprolol 50 mg once daily, sertraline 100 mg once daily, valacyclovir 500 mg once daily Social & Personal history: lives at home with family Smoking:denies alcohol:drinks 4 glasses of wine everyday for the last 15-20 years Allergies: no known allergies Cardiovascular: HTN Past Surgical History: Tubal Ligation Smoke: No ALCOHOL: occassional Drugs: None Lives: with Family Patient seen and examined at bedside. Patient is alert and oriented to time, place person and responding to all questions. Eyes: No Pain, No Vision change, No Conjunctivae inflammation, No Eyelid inflammation, No Redness ENT: No Ear pain, No Ear discharge, No Nose pain, No Nose discharge, No Nose congestion, No Mouth pain, No Mouth swelling, No Throat pain, No Throat swelling Cardiovascular: No Chest Pain, No Palpitations, No Orthopnea, No Paroxysmal Dyspnea, No Edema, No Lt Headedness Respiratory: No Cough, No Dry, No Shortness of breath, No SOB with exertion, No Wheezing, No Hemoptysis, No Pleuritic Pain, No Sputum Gastrointestinal: No Nausea, No Vomiting, No Abdominal Pain, No Diarrhea, No Constipation, No Melena, No Hematochezia Genitourinary: No Dysuria, No Frequency, No Incontinence, No Hematuria, No Retention Allergies: Coded Allergies: NO KNOWN ALLERGIES (Unverified , 04/18/25) 04/19/25- The patient was seen at bedside today. All labs and charts were reviewed. Liver ultrasound showed 5.4 x 4.9 x 4.5 cm ill-defined heterogeneous mass right lobe of the liver.CT abdomen with contrast and alpha-fetoprotein were ordered to evaluate the liver mass. Duplex venous study showed No right or left lower extremity deep venous thrombosis. 04/20/25- The patient was seen at bedside today. There was a mild reduction in the leg swelling. All labs and charts were reviewed. Potassium was 3.3 and was repleted with 40 mEq po once. CA 19-9 was 45 and CA-125 was 39.8, AFP was 9.1. CT abdomen showed hypervascular right hepatic lobe lesion measuring 9.5 x 7 cm, cirrhotic morphology of the liver, cholelithiasis and atherosclerotic vascular disease. IR consult was placed for biopsy of the hepatic mass. Pelvic ultrasound was done which showed heterogeneous appearance of the uterus. 04/01/25- The patient was seen at bedside today. Mild reduction in leg swelling was noticed. Labs and charts were reviewed. Interventional Radiology recommended MRI abdomen and a GI consult. MRI can not be done as the patient has metal in her ankle. Pending GI consult. Hepatitis a antibody was positive. Objective vital signs Vital Sign Date Time Temp Pulse Resp B/P (MAP) Pulse Ox O2 Delivery O2 Flow Rate FiO2 04/21/25 13:50 97.9 93 18 158/81 (106) 96 97.9 04/21/25 08:00 Room Air* 0 21 Total Intake and Output 04/20/25 04/20/25 04/21/25 15:00 23:00 07:00 Intake Total 230 ml 2550 ml 600 ml Balance 230 ml 2550 ml 600 ml medications Current Medications Medications Dose Ordered Sig/Ovidio Route Start Time Stop Time Status Last Admin Dose Admin Nitroglycerin 0.4 mg Q5MINP PRN SL 04/18/25 17:00 UNV Morphine Sulfate 2 mg Q30M PRN IV 04/18/25 17:00 Acetaminophen 650 mg Q6HP PRN PO 04/18/25 17:00 04/21/25 09:14 650 MG Enoxaparin Sodium 40 mg DAILY SC 04/18/25 17:00 04/21/25 09:15 40 MG Nitroglycerin 0.4 mg Q5MINP PRN SL 04/18/25 17:00 Morphine Sulfate 2 mg Q30M PRN IV 04/18/25 17:00 UNV Lisinopril 40 mg DAILY PO 04/19/25 10:00 04/21/25 09:15 40 MG Furosemide 40 mg BIDD IV 04/18/25 18:00 04/21/25 05:36 40 MG Hydralazine HCl 10 mg Q6HP PRN IV 04/18/25 18:15 04/20/25 12:50 10 MG Ergocalciferol 50,000 unit Q7D PO 04/18/25 18:45 04/18/25 21:26 50,000 UNIT Examination General Appearance: Cooperative. Well developed. Well nourished. NAD Head Exam: Normal inspection Neck Exam: Normal inspection. Non-tender. Normal alignment Pulmonary/Respiratory: Chest non-tender. Clear bilateral breath sounds, no crackles, no wheezing. Cardiovascular/Chest: Regular rate and rhythm. No murmurs. No JVD. Peripheral Pulses: 2+ Radial (R). 2+ Radial (L). Abdominal Exam: Normal bowel sounds. Soft. normal abdomen, no visible veins, Nontender. No hepatospenomegaly. No masses.bruise present on lower abdomen around 3-4 cm X 2-3 cm Lower extremities:bilateral 2+ lower extremity edema (improved since admission), no erythema or warmth Neuro/Mental Status: A&O x4. Coherent. Thoughts/Psych: Normal thought pattern. Appropriate mood and affect. Good judgement and insight Skin Exam: Normal inspection. Normal color. Warm. Dry laboratory and microbiology Laboratory Tests 04/21/25 09:47 04/20/25 04:35 Test 04/21/25 09:47 Range/Units Serum Glucose 147 H 74-106 mg/dL Labs and/or images reviewed: Labs reviewed by me, Image(s) reviewed by me Problem List/Assessment/Plan Problem List/Assessment/Plan # Possible Acute Systolic/Diastolic CHF - Lasix IV 40mg bid -Echo ordered,pending report # Pulm Edema - Lasix IV, repeat CXR # Hypertensive Urgency - Monitor and adjust meds as needed # Rule out Hepatocellular Carcinoma #Cholelithiasis -liver ultrasound showed 5.4 x 4.9 x 4.5 cm ill-defined heterogeneous mass right lobe of the liver -CT abdomen showed hypervascular lesion 9.5x7 cm inright hepatic lobe, liver cirrhosis, cholelithiasis, atherosclerotic disease - AFP is within normal limits -CA19-9 is 45, CA125 is 39.8 -GI consult pending DVT prophylaxis: Lovenox 40mg daily sc Goals of care: Full code, discussed for >23 minutes Plan discussed with Dr Villalobos Plan discussed with: Patient Date of Service: Apr 21, 2025 Billing Provider: GOPI VILLALOBOS MD Common Visit Codes: [id number] INP/OBS CARE(HIGH) SANAZ HONG RESIDENT Apr 21, 2025 15:48 GOPI VILLALOBOS MD Apr 21, 2025 18:28
--- NOTE | 2025-04-21 16:49 | DVHINCON2 ---
Date of service: Apr 21, [address] Barton Reason for Consultation Cirrhosis Liver mass History of Present Illness Patient is a 65-year-old female with a past medical history significant for hypertension, admitted with lower extremity edema and abdominal swelling for the last month. Patient is known to drink alcohol 4-6 glasses of wine per day for the last 15-20 years.. She denies history of liver disease, kidney disease, heart disease. Patient denies any fevers or chills. Patient has been improving since admission. Imaging tests are suggestive of cirrhosis in the patient also has a mass in the liver. GI consultation was obtained for evaluation. Past Medical History Hypertension Depression Past Surgical History Tubal ligation Family History: Patient reports no known family medical history. Allergies: Coded Allergies: NO KNOWN ALLERGIES (Unverified , 04/18/25) Home Meds Reported Medications Metoprolol Tartrate (Metoprolol Tartrate) 50 Mg Tab, 50 MG PO DAILY for 30 Days, MG 04/18/25 Valacyclovir Hcl (Valtrex) 1 Gm Tab, 500 MG PO DAILY, TAB 04/18/25 Sertraline Hcl (Zoloft) 100 Mg Tab, 100 MG PO DAILY, TAB 04/18/25 Lisinopril (Lisinopril) 40 Mg Tab, 40 MG PO DAILY for 30 Days, MG 04/18/25 Current Medications See HPI Lisinopril Valacyclovir Sertraline Review of Systems Review of systems negative other than what she was given an HPI Vital Signs Vital Signs Date Time Temp Pulse Resp B/P (MAP) Pulse Ox O2 Delivery O2 Flow Rate FiO2 04/21/25 13:50 97.9 93 18 158/81 (106) 96 97.9 04/21/25 08:00 Room Air* 0 21 Physical Exam General: Well-developed well-nourished HEENT: NC/AT EOMI PERRLA O/P clear, no JVD or cervical lymphadenopathy, no scleral icterus Heart: Regular rate and rhythm, no murmurs rubs or gallops Lungs: Clear to auscultation bilaterally, no wheezes rales or rhonchi Abdomen: Soft, mildly distended Extremity: Edema of the lower extremities Neuro: Cranial nerves 2-12 grossly intact, moves all four extremities, no asterixis Labs/Diagnostic Data Labs Test 04/21/25 09:47 04/20/25 17:45 04/20/25 04:35 04/19/25 11:59 Range/Units Sodium Level 137 136-145 mmol/L Potassium Level 3.6 3.5-5.1 mmol/L Chloride Level 96 L 98-107 mmol/L Carbon Dioxide Level 30 20-31 mmol/L Anion Gap 11 5-15 Blood Urea Nitrogen 5 L 9-23 mg/dL Creatinine 0.63 0.550-1.02 mg/dL Glomerular Filtration Rate Calc 98 >90 mL/min BUN/Creatinine Ratio 7.9 L 10.0-20.0 Serum Glucose 147 H 74-106 mg/dL Hemoglobin A1c 5.0 <5.7 % A1C Calcium Level 9.0 8.7-10.4 mg/dL Urine Color Light-yellow Yellow Urine Clarity Clear Clear Urine pH 6.5 5.0-9.0 Urine Specific [place] 1.004 1.001-1.035 Urine Protein Negative Negative Urine Ketones Negative Negative Urine Blood Negative Negative /uL Urine Nitrite Negative Negative Urine Bilirubin Negative Negative Urine Urobilinogen Normal Negative mg/dL Urine Leukocyte Esterase Negative Negative /uL Urine RBC None seen 0 - 4 /hpf Urine Microscopic WBC 1 0-5 /HPF Urine Squamous Epithelial Cells Few <5 /hpf Urine Bacteria Few H None Seen /hpf Urine Glucose Normal Normal mg/dL White Blood Count 3.7 L 4.4-10.8 10^3/uL Red Blood Count 4.33 4.0-5.20 10^6/uL Hemoglobin 13.0 12.2-16.2 g/dL Hematocrit 38.6 36.0-46.0 % Mean Corpuscular Volume 89.1 80.0-100.0 fL Mean Corpuscular Hemoglobin 30.0 28.0-32.0 pg Mean Corpuscular Hemoglobin Concent 33.6 32.0-36.0 g/dL Red Cell Distribution Width 15.3 H 11.8-14.3 % Platelet Count 110 L 140-450 10^3/uL Mean Platelet Volume 8.6 6.9-10.8 fL Neutrophils (%) (Auto) 45.1 37.0-80.0 % Lymphocytes (%) (Auto) 36.1 10.0-50.0 % Monocytes (%) (Auto) 16.8 H 0.0-12.0 % Eosinophils (%) (Auto) 1.6 0.0-7.0 % Basophils (%) (Auto) 0.4 0.0-2.0 % Neutrophils # (Auto) 1.7 1.6-8.6 10 ^3/uL Lymphocytes # (Auto) 1.3 0.4-5.4 10 ^3/uL Monocytes # (Auto) 0.6 0-1.3 10 ^3/uL Eosinophils # (Auto) 0.1 0-0.8 10 ^3/uL Basophils # (Auto) 0 0-0.2 10 ^3/uL Nucleated Red Blood Cells 0.3 % Tumor Marker Alpha Fetoprotein 9.1 0.0-9.2 ng/mL CA 19-9 Antigen 45 H 0-35 U/mL Test 04/19/25 11:21 04/19/25 05:11 04/18/25 13:35 04/18/25 10:28 Range/Units Prothrombin Time 11.6 9.3-11.8 sec Prothrombin Time INR 1.11 0.9-1.15 Activated Partial Thromboplast Time 29.8 24.5-34.5 SEC CA 125 Antigen 39.8 H 0.0-38.1 U/mL Hepatitis A Antibody Total Positive H Negative Hepatitis B Surface Antigen Negative Negative Hepatitis B Surface Antibody Negative Negative Hepatitis B Core Total Antibody Negative Negative Hepatitis C Antibody Negative Negative Total Bilirubin 1.6 H 0.2-1.0 mg/dL Aspartate Amino Transferase (AST) 75 H 13-40 U/L Alanine Aminotransferase (ALT) 52 H 7-40 U/L Alkaline Phosphatase 138 H 46-116 U/L Total Protein 6.4 5.7-8.2 g/dL Albumin 3.5 3.2-4.8 g/dL Carcinoembryonic Antigen 3.45 <=5.0 ng/mL Troponin I High Sensitivity 4 </=34 ng/L Direct Bilirubin 0.8 H <0.3 mg/dL B-Type Natriuretic Peptide 268.19 0-100 pg/mL Vitamin B12 Level 809 211-911 pg/mL Vitamin D 25-Hydroxy 27.3 L 30.0-100 ng/mL Thyroid Stimulating Hormone (TSH) 2.46 0.55-4.78 uIU/mL Free Thyroxine (T4) Calculated 1.29 0.89-1.76 ng/dL IMPRESSION: Hypervascular lesion on the arterial, venous and delayed phases within the right hepatic lobe measuring 9.5 x 7 cm. Recommend multiphasic MRI abdomen with and without contrast to further characterize. No definitive washout seen. Correlate with alpha fetoprotein levels. Consideration could also be given to tissue sampling Cirrhotic morphology liver, splenomegaly. Cholelithiasis. Atherosclerotic disease. Moderate volume stool within the colon. Other findings as Assessment 1. Cirrhosis is likely 2. Liver mass 3. Thrombocytopenia 4. History of EtOH use Findings are suspicious for hepatocellular carcinoma even in the setting of a normal alpha-fetoprotein. Other possibilities include benign lesions of the liver Problems(with codes): (1) Pedal edema Plan/Recommendation 1. Continue diuretics 2. Follow up with echocardiogram report 3. Consider adding Aldactone 4. MRI abdomen with contrast 5. We will follow 6. Consider liver biopsy pending MR report 7. Low-salt diet Plan discussed with: Patient CHILANGO PERKINS MD Apr 21, 2025 16:49
[2025-04-22] VITALS (8 sets, daily range): BP systolic 119–164; BP diastolic 74–90; PULSE 95–102; RESP 15–18; TEMP 97.7–98.6; O2SAT 92–99
[2025-04-22 06:50] LABS: Anion Gap 10 (5-15); Calcium 9.2 mg/dL (8.7-10.4); Chloride 98 mmol/L (98-107); Sodium 140 mmol/L (136-145)
[2025-04-22 06:55] LABS: Carbon Dioxide 32 mmol/L (20-31); Potassium 3.4 mmol/L (3.5-5.1)
[2025-04-22 06:56] LABS: BUN/Creatinine Ratio 10.4 (10.0-20.0); Glucose 101 mg/dL (74-106)
[2025-04-22 07:02] LABS: Blood Urea Nitrogen 7 mg/dL (9-23)
[2025-04-22 07:22] LABS: Hematocrit 41.9 % (36.0-46.0); Hemoglobin 14.2 g/dL (12.2-16.2); Mean Corpuscular Hemoglobin 30.3 pg (28.0-32.0); Mean Corpuscular Volume 89.5 fL (80.0-100.0)
[2025-04-22 08:09] LABS: Total Cells Counted 100.0 (100)
[2025-04-22] MEDS: POTASSIUM EFFERVESENT TAB 25 MEQ GT ONE (09:44)
--- NOTE | 2025-04-22 13:57 | DVHSR ---
APPROVED REPORT EXAM: Two-dimensional and M-mode echocardiogram with Doppler and color Doppler. Blood Pressure: 136/82 mmHg INDICATION Cardiomegaly RISK FACTORS Height: 5'5", Weight: 235 DIMENSIONS LVDd5.2 (3.8-5.7cm)LA (2D)4.3 (1.9-4.0cm)Aortic Root2.7 (2.0-3.7cm) LVDs2.9 (2.5-4.0cm)LA (MM) (1.9-4.0cm)Aortic Cusp Exc1.6 (1.5-2.0cm) EF (%) 75.0 (55-70%)Rt. Atrium4.7 (1.9-4.0cm)Asc. Aorta cm IVSd1.4 (0.7-1.1cm)RV (D) (1.8-2.4cm) Mitral Valve MitralMitral Stenosis E wave1.12m/sMV Mean GR.mmHg A wave0.94m/sMV Peak GR.mmHg E/A ratio1.22D MVAcm2 DECEL [id number] 1/2 Timems Aortic Valve Aortic ValveAortic Stenosis V11.44m/Ange Mean GR.11mmHg V22.14m/Ange Peak GR.18mmHg LVOT Diameter1.7 (1.8-2.4cm)Doppler AVA1.53cm2 Pulmonic Valve V21.40m/s Tricuspid Valve TR Velocity3.11m/s [id number] Other Information Quality : Technically LimitedRhythm : Technically limited study due to body habitus. Conclusion lvef 60% normal rv function normal atria no severe valve abnormaliteis noted pericardial fat pad mild mitral regurg asked to read echo 1 hour ago
--- NOTE | 2025-04-22 16:25 | PRN ---
Misceleneous Note Note Note 04/22/2025 Subjective: Patient is sitting up in a chair, her grandson is visiting her. She has no complaints. She states that her edema is better Current Medications Medications (Trade) Dose Ordered Sig/Ovidio Route Start Time Stop Time Status Last Admin Dose Admin Nitroglycerin (Ntrostat Sublingual) 0.4 mg Q5MINP PRN SL 04/18/25 17:00 UNV Morphine Sulfate 2 mg Q30M PRN IV 04/18/25 17:00 Acetaminophen (Tylenol Tablet) 650 mg Q6HP PRN PO 04/18/25 17:00 04/22/25 09:47 Enoxaparin Sodium (Lovenox) 40 mg DAILY SC 04/18/25 17:00 04/22/25 09:45 Nitroglycerin (Ntrostat Sublingual) 0.4 mg Q5MINP PRN SL 04/18/25 17:00 Morphine Sulfate 2 mg Q30M PRN IV 04/18/25 17:00 UNV Lisinopril (Zestril Tablet) 40 mg DAILY PO 04/19/25 10:00 04/22/25 09:44 Furosemide (Lasix Injection) 40 mg BIDD IV 04/18/25 18:00 04/22/25 06:04 Hydralazine HCl (Apresoline Injection) 10 mg Q6HP PRN IV 04/18/25 18:15 04/20/25 12:50 Ergocalciferol (Vitamin D 50,000 Unit) 50,000 unit Q7D PO 04/18/25 18:45 04/18/25 21:26 Objective: Vital Signs Date Time Temp Pulse Resp B/P (MAP) Pulse Ox O2 Delivery O2 Flow Rate FiO2 04/22/25 13:00 98.4 95 18 164/90 (114) 95 98.4 04/22/25 09:44 119/82 04/22/25 09:00 98.5 99 16 119/82 (94) 95 98.5 04/22/25 08:00 99 16 99 Room Air* 0 21 04/22/25 06:04 131/75 04/22/25 05:00 98.2 102 16 131/74 (93) 93 98.2 04/22/25 01:00 97.7 101 15 149/83 (105) 92 97.7 04/21/25 21:00 97.9 91 14 144/78 (100) 95 97.9 04/21/25 20:00 Room Air* 0 21 04/21/25 17:06 130/70 04/21/25 17:01 98.5 80 18 159/81 (107) 96 98.5 Lab Test 04/22/25 06:00 Range/Units White Blood Count 4.0 L 4.4-10.8 10^3/uL Red Blood Count 4.68 4.0-5.20 10^6/uL Hemoglobin 14.2 12.2-16.2 g/dL Hematocrit 41.9 36.0-46.0 % Mean Corpuscular Volume 89.5 80.0-100.0 fL Mean Corpuscular Hemoglobin 30.3 28.0-32.0 pg Mean Corpuscular Hemoglobin Concent 33.8 32.0-36.0 g/dL Red Cell Distribution Width 15.3 H 11.8-14.3 % Platelet Count 117 L 140-450 10^3/uL Mean Platelet Volume 8.7 6.9-10.8 fL Neutrophils (%) (Auto) 37.0-80.0 % Lymphocytes (%) (Auto) 10.0-50.0 % Monocytes (%) (Auto) 0.0-12.0 % Basophils (%) (Auto) 0.0-2.0 % Neutrophils # (Auto) 1.6-8.6 10 ^3/uL Lymphocytes # (Auto) 0.4-5.4 10 ^3/uL Monocytes # (Auto) 0-1.3 10 ^3/uL Differential Total Cells Counted 100.0 100 Neutrophils % (Manual) 48 37.0-80.0 Band Neutrophils % (Manual) 0 Lymphocytes % (Manual) 35 10.0-50.0 Monocytes % (Manual) 15 H 0-12 Eosinophils % (Manual) 2 0-7 Basophils % (Manual) 0 0.0-2.0 Metamyelocytes % (manual) 0 Myelocytes % (Manual) 0 Promyelocytes % (Manual) 0 Blast Cells % (Manual) 0 Reactive Lymphocytes 0 Platelet Estimate Decreased Sodium Level 140 136-145 mmol/L Potassium Level 3.4 L 3.5-5.1 mmol/L Chloride Level 98 98-107 mmol/L Carbon Dioxide Level 32 H 20-31 mmol/L Anion Gap 10 5-15 Blood Urea Nitrogen 7 L 9-23 mg/dL Creatinine 0.67 0.550-1.02 mg/dL Glomerular Filtration Rate Calc 96 >90 mL/min BUN/Creatinine Ratio 10.4 10.0-20.0 Serum Glucose 101 74-106 mg/dL Calcium Level 9.2 8.7-10.4 mg/dL Current Medications Medications (Trade) Dose Ordered Sig/Ovidio Route Start Time Stop Time Status Last Admin Potassium Bicarbonate (Klor-Con/Ef) 50 meq ONCE ONCE GT 04/22/25 08:45 04/22/25 08:46 DC 04/22/25 09:44 Vital Signs Date Time Temp Pulse Resp B/P (MAP) Pulse Ox O2 Delivery O2 Flow Rate FiO2 04/22/25 13:00 98.4 95 18 164/90 (114) 95 98.4 04/22/25 08:00 Room Air* 0 21 General: Well-developed well-nourished HEENT: NC/AT EOMI PERRLA O/P clear, no JVD or cervical lymphadenopathy, no scleral icterus Heart: Regular rate and rhythm, no murmurs rubs or gallops Lungs: Clear to auscultation bilaterally, no wheezes rales or rhonchi Abdomen: Soft, nontender, nondistended, no organomegaly, normoactive bowel sounds Extremity: No clubbing cyanosis , 2+ edema bilaterally Impression: Lower extremity edema Suspected cirrhosis versus given findings on echocardiogram History of ETOH abuse Liver mass Recommendations: 1. Continue with diuresis 2. Follow electrolytes and replace 3. will need CT-guided or ultrasound-guided biopsy of the liver lesion 4. EtOH counseling was given 5. Low-salt diet, limit fluid intake, avoid raw seafood, evaluate hepatitis a and B immunization status 6. I will be signing off to CHILANGO Blank MD Apr 22, 2025 16:25
--- NOTE | 2025-04-22 17:34 | DVHPNRES ---
Progress Note Date Seen: Apr 22, 2025 Resident Creating Document: SHAD STILES RESIDENT Medical Necessity Reason Pt with a Central, PICC or Fol: No Subjective Review of Systems Mrs. Yolanda Ribeiro is a 65 year old female, with past medical history of HTN. The patient came to the ED with the chief complaint of 1 month of bilateral leg edema. Patient mentions she had swelling in both lower legs which has progressed to upper legs and lower abdomen. Patient mentions elevation of the feet reduces the swelling. She denies any shortness of breath, fatigue and weakness. Patient also mentions she has had pain in the back since the last 1 week. Patient states that she has the pain on and off, is 5/10 in intensity and nonradiating. She denies any, burning sensation on micturition. Denies any recent fever or chills. Patient mentions she had an abnormal EKG 10 years back following which angiogram was done, which was found to be normal and no stenting was required. Patient was started on lasix 40mg iv bid for the pedal edema. Labs showed raised bilirubin,AST,ALT and ALP. Chest x-ray showed cardiomegaly with pulmonary vascular congestion. Past medical history: Hypertension Past surgical history: Tubal ligation Home medications: Lisinopril 40 once daily, metoprolol 50 mg once daily, sertraline 100 mg once daily, valacyclovir 500 mg once daily Social & Personal history: lives at home with family Smoking:denies alcohol:drinks 4 glasses of wine everyday for the last 15-20 years Allergies: no known allergies Cardiovascular: HTN Past Surgical History: Tubal Ligation Smoke: No ALCOHOL: occasional Drugs: None Lives: with Family Hospitalization course: 04/19/25- The patient was seen at bedside today. All labs and charts were reviewed. Liver ultrasound showed 5.4 x 4.9 x 4.5 cm ill-defined heterogeneous mass right lobe of the liver.CT abdomen with contrast and alpha-fetoprotein were ordered to evaluate the liver mass. Duplex venous study showed No right or left lower extremity deep venous thrombosis. 04/20/25- The patient was seen at bedside today. There was a mild reduction in the leg swelling. All labs and charts were reviewed. Potassium was 3.3 and was repleted with 40 mEq po once. CA 19-9 was 45 and CA-125 was 39.8, AFP was 9.1. CT abdomen showed hypervascular right hepatic lobe lesion measuring 9.5 x 7 cm, cirrhotic morphology of the liver, cholelithiasis and atherosclerotic vascular disease. IR consult was placed for biopsy of the hepatic mass. Pelvic ultrasound was done which showed heterogeneous appearance of the uterus.04/01/25- The patient was seen at bedside today. Mild reduction in leg swelling was noticed. Labs and charts were reviewed. Interventional Radiology recommended MRI abdomen and a GI consult. MRI can not be done as the patient has metal in her ankle. Pending GI consult. Hepatitis A antibody was positive. On 04/22/25, the patient was evaluated and examined at the bedside. VS, labs and chart was reviewed. The potassium was 3.4 and was replenish with potassium effervescent tablet. ECHO report is pending. Liver biopsy is still pending. MRI was not performed due ankle metal implant. GI consult is on board. The patient reports feeling well today, bilateral leg edema has improved. We will continue following up this patient progress. ROS: Contitutional: denies fever, chills, generalized weakness Eyes: No Pain, No Vision change, No Conjunctivae inflammation, No Eyelid inflammation, No Redness ENT: No Ear pain, No Ear discharge, No Nose pain, No Nose discharge, No Nose congestion, No Mouth pain, No Mouth swelling, No Throat pain, No Throat swelling Cardiovascular: No Chest Pain, No Palpitations, No Orthopnea, No Paroxysmal Dyspnea, No Edema, No Lt Headedness Respiratory: No Cough, No Dry, No Shortness of breath, No SOB with exertion, No Wheezing, No Hemoptysis, No Pleuritic Pain, No Sputum Gastrointestinal: No Nausea, No Vomiting, No Abdominal Pain, No Diarrhea, No Constipation, No Melena, No Hematochezia Genitourinary: No Dysuria, No Frequency, No Incontinence, No Hematuria, No Retention Allergies: NO KNOWN ALLERGIES (Unverified , 04/18/25) Objective vital signs Vital Sign Date Time Temp Pulse Resp B/P (MAP) Pulse Ox O2 Delivery O2 Flow Rate FiO2 04/22/25 17:00 98.6 97 18 154/82 (106) 96 98.6 04/22/25 08:00 Room Air* 0 21 Total Intake and Output 04/21/25 04/21/25 04/22/25 15:00 23:00 07:00 Intake Total 610 ml 800 ml 400 ml Balance 610 ml 800 ml 400 ml medications Current Medications Medications Dose Ordered Sig/Ovidio Route Start Time Stop Time Status Last Admin Dose Admin Nitroglycerin 0.4 mg Q5MINP PRN SL 04/18/25 17:00 UNV Morphine Sulfate 2 mg Q30M PRN IV 04/18/25 17:00 Acetaminophen 650 mg Q6HP PRN PO 04/18/25 17:00 04/22/25 09:47 650 MG Enoxaparin Sodium 40 mg DAILY SC 04/18/25 17:00 04/22/25 09:45 40 MG Nitroglycerin 0.4 mg Q5MINP PRN SL 04/18/25 17:00 Morphine Sulfate 2 mg Q30M PRN IV 04/18/25 17:00 UNV Lisinopril 40 mg DAILY PO 04/19/25 10:00 04/22/25 09:44 40 MG Furosemide 40 mg BIDD IV 04/18/25 18:00 04/22/25 06:04 40 MG Hydralazine HCl 10 mg Q6HP PRN IV 04/18/25 18:15 04/20/25 12:50 10 MG Ergocalciferol 50,000 unit Q7D PO 04/18/25 18:45 04/18/25 21:26 50,000 UNIT Examination General Appearance: Cooperative. Well developed. Well nourished. NAD Head Exam: Normal inspection Neck Exam: Normal inspection. Non-tender. Normal alignment Pulmonary/Respiratory: Chest non-tender. Clear bilateral breath sounds, no crackles, no wheezing. Cardiovascular/Chest: Regular rate and rhythm. No murmurs. No JVD. Peripheral Pulses: 2+ Radial (R). 2+ Radial (L). Abdominal Exam: Normal bowel sounds. Soft. normal abdomen, no visible veins, Nontender. No hepatospenomegaly. No masses.bruise present on lower abdomen around 3-4 cm X 2-3 cm Lower extremities:bilateral 2+ lower extremity edema (improved since admission), no erythema or warmth Neuro/Mental Status: A&O x4. Coherent. Thoughts/Psych: Normal thought pattern. Appropriate mood and affect. Good judgement and insight Skin Exam: Normal inspection. Normal color. Warm. Dry laboratory and microbiology Laboratory Tests 04/22/25 06:00 Test 04/22/25 06:00 Range/Units Serum Glucose 101 74-106 mg/dL Problem List/Assessment/Plan Problem List/Assessment/Plan #Possible Acute Systolic/Diastolic CHF -Lasix IV 40mg bid -Echo ordered,pending report - Stric I&O #Pulmonary Edema - Lasix 40mg IV, -Repeat CXR #Hypertensive Urgency - Monitor and adjust meds as needed #Rule out Hepatocellular Carcinoma #Cholelithiasis -liver ultrasound showed 5.4 x 4.9 x 4.5 cm ill-defined heterogeneous mass right lobe of the liver -CT abdomen showed hypervascular lesion 9.5x7 cm inright hepatic lobe, liver cirrhosis, cholelithiasis, atherosclerotic disease - AFP is within normal limits -CA19-9 is 45, CA125 is 39.8 -GI consult pending -IR consult for guided biopsy #Hypokalemia K: 3.4 Potassium replenish. Diet: Cardiac diet DVT prophylaxis: Lovenox 40mg daily sc Goals of care: discussed with the patient for >35 minutes Code Status: full code Plan discussed with Dr Villalobos Plan discussed with: Patient My Orders My Orders Orders - SHAD STILES RESIDENT Procedure Category Date Status Time Complete Blood Count LAB 04/23/25 Verified 04:00 Basic Metabolic Panel LAB 04/23/25 Verified 04:00 Dietary Evaluation Review Recommendations by RD: Dietary education by RD Comments: 1) Continue cardiac diet 2) Refer to outpatient RD for weight management 3) Follow-up with cardiology and pulmonology 4) Continue to monitor I&O, labs, and skin integrity Expected Outcomes/Goals: 1) appetite and labs to improve 2) gradual wt loss 3) f/u in 3-5 days Date of Service: Apr 22, 2025 Billing Provider: GOPI VILLALOBOS MD Common Visit Codes: [id number] INP/OBS CARE(HIGH) Date of Service: Apr 22, 2025 Billing Provider: GOPI VILLALOBOS MD Common Visit Codes: [id number] INP/OBS CARE(HIGH) SHAD STILES Apr 22, 2025 17:34 GOPI VILLALOBOS MD Apr 22, 2025 23:05
[2025-04-23 01:00] VITALS: BP 119/79; PULSE 97; RESP 18; TEMP 97.9; O2SAT 92
[2025-04-23 05:00] VITALS: BP 152/82; PULSE 92; RESP 17; TEMP 98.3; O2SAT 94
[2025-04-23 06:24] LABS: Hematocrit 42.1 % (36.0-46.0); Hemoglobin 14.0 g/dL (12.2-16.2); Mean Corpuscular Hemoglobin 29.6 pg (28.0-32.0); Mean Corpuscular Volume 89.4 fL (80.0-100.0); Nucleated Red Blood Cells % 0.3 %
[2025-04-23 06:41] LABS: Chloride 100 mmol/L (98-107); Sodium 140 mmol/L (136-145)
[2025-04-23 06:42] LABS: Anion Gap 10 (5-15); Calcium 9.3 mg/dL (8.7-10.4); Carbon Dioxide 30 mmol/L (20-31)
[2025-04-23 06:45] LABS: Potassium 3.5 mmol/L (3.5-5.1)
[2025-04-23 06:47] LABS: BUN/Creatinine Ratio 13.5 (10.0-20.0); Glucose 101 mg/dL (74-106)
[2025-04-23 06:50] LABS: Blood Urea Nitrogen 7 mg/dL (9-23)
[2025-04-23 08:00] VITALS: PULSE 97; RESP 18; O2SAT 99
[2025-04-23 09:00] VITALS: BP_SYST 104; BP_SYST 143; BP_DIAS 75; BP_DIAS 77; PULSE 77; PULSE 92; RESP 18; RESP 19; TEMP 97.9; TEMP 98.4; O2SAT 100
[2025-04-23] MEDS: MIDAZOLAM HCL 2MG/2ML 2ml VIAL (1mg/ml) IV ONE (12:15)
[2025-04-23] MEDS: fentaNYL CITRATE 100 MCG/2 ML VL IV ONE (12:15)
[2025-04-23] MEDS: LIDOCAINE 2%HCL (LOCAL ANESTH.) INJ 10ml MDV ONE (12:27)
[2025-04-23] MEDS: GELATIN 1 SPONGE SIZE 50 TOP ONE (12:27)
--- NOTE | 2025-04-23 13:08 | DVH ---
US US GUIDANCE FOR NEEDLE PLACEME, HISTORY: LIVER MASS BIOPSY TECHNICAL DATA: Transverse and longitudinal sonographic images were obtained of the Liver. COMPARISON: US PELVIC on DOS: 04/20/25, US BILAT LOWER DVT on DOS: 04/19/25, US LIVER on DOS: 5 FINDINGS: Ultrasound guidance for liver biopsy terminated because there was no clear defined mass. Ill-defined heterogeneous liver parenchymal in the right hepatic lobe within a background of cirrhosis was seen. IMPRESSION: No clear target for liver biopsy. Procedure deferred until able to obtain an abdominal MRI w/ contras t for further evaluation of the liver.
--- NOTE | 2025-04-23 13:30 | DVHDSRES ---
Discharge Summary Date of Admission Resident Creating Document: SANAZ HONG RESIDENT Apr 18, 2025 at 16:49 Date of Discharge: Apr 23, 2025 Admitting Diagnosis Possible acute systolic/ diastolic CHF Labs/Diagnostic Data: Laboratory Results Test 04/23/25 05:08 04/22/25 06:00 04/21/25 09:47 04/20/25 17:45 White Blood Count 3.8 10^3/uL (4.4-10.8) Red Blood Count 4.71 10^6/uL (4.0-5.20) Hemoglobin 14.0 g/dL (12.2-16.2) Hematocrit 42.1 % (36.0-46.0) Mean Corpuscular Volume 89.4 fL (80.0-100.0) Mean Corpuscular Hemoglobin 29.6 pg (28.0-32.0) Mean Corpuscular Hemoglobin Concent 33.1 g/dL (32.0-36.0) Red Cell Distribution Width 14.9 % (11.8-14.3) Platelet Count 113 10^3/uL (140-450) Mean Platelet Volume 9.1 fL (6.9-10.8) Neutrophils (%) (Auto) 48.2 % (37.0-80.0) Lymphocytes (%) (Auto) 32.1 % (10.0-50.0) Monocytes (%) (Auto) 16.9 % (0.0-12.0) Eosinophils (%) (Auto) 2.0 % (0.0-7.0) Basophils (%) (Auto) 0.8 % (0.0-2.0) Neutrophils # (Auto) 1.8 10 ^3/uL (1.6-8.6) Lymphocytes # (Auto) 1.2 10 ^3/uL (0.4-5.4) Monocytes # (Auto) 0.6 10 ^3/uL (0-1.3) Eosinophils # (Auto) 0.1 10 ^3/uL (0-0.8) Basophils # (Auto) 0 10 ^3/uL (0-0.2) Nucleated Red Blood Cells 0.3 % Sodium Level 140 mmol/L (136-145) Potassium Level 3.5 mmol/L (3.5-5.1) Chloride Level 100 mmol/L (98-107) Carbon Dioxide Level 30 mmol/L (20-31) Anion Gap 10 (5-15) Blood Urea Nitrogen 7 mg/dL (9-23) Creatinine 0.52 mg/dL (0.550-1.02) Glomerular Filtration Rate Calc 102 mL/min (>90) BUN/Creatinine Ratio 13.5 (10.0-20.0) Serum Glucose 101 mg/dL (74-106) Calcium Level 9.3 mg/dL (8.7-10.4) Differential Total Cells Counted 100.0 (100) Neutrophils % (Manual) 48 (37.0-80.0) Band Neutrophils % (Manual) 0 Lymphocytes % (Manual) 35 (10.0-50.0) Monocytes % (Manual) 15 (0-12) Eosinophils % (Manual) 2 (0-7) Basophils % (Manual) 0 (0.0-2.0) Metamyelocytes % (manual) 0 Myelocytes % (Manual) 0 Promyelocytes % (Manual) 0 Blast Cells % (Manual) 0 Reactive Lymphocytes 0 Platelet Estimate Decreased Hemoglobin A1c 5.0 % A1C (<5.7) Urine Color Light-yellow (Yellow) Urine Clarity Clear (Clear) Urine pH 6.5 (5.0-9.0) Urine Specific [place] 1.004 (1.001-1.035) Urine Protein Negative (Negative) Urine Ketones Negative (Negative) Urine Blood Negative /uL (Negative) Urine Nitrite Negative (Negative) Urine Bilirubin Negative (Negative) Urine Urobilinogen Normal mg/dL (Negative) Urine Leukocyte Esterase Negative /uL (Negative) Urine RBC None seen /hpf (0 - 4) Urine Microscopic WBC 1 /HPF (0-5) Urine Squamous Epithelial Cells Few /hpf (<5) Urine Bacteria Few /hpf (None Seen) Urine Glucose Normal mg/dL (Normal) Test 04/19/25 11:59 04/19/25 11:21 04/19/25 05:11 04/18/25 13:35 Tumor Marker Alpha Fetoprotein 9.1 ng/mL (0.0-9.2) CA 19-9 Antigen 45 U/mL (0-35) Prothrombin Time 11.6 sec (9.3-11.8) Prothrombin Time INR 1.11 (0.9-1.15) Activated Partial Thromboplast Time 29.8 SEC (24.5-34.5) CA 125 Antigen 39.8 U/mL (0.0-38.1) Hepatitis A Antibody Total Positive (Negative) Hepatitis B Surface Antigen Negative (Negative) Hepatitis B Surface Antibody Negative (Negative) Hepatitis B Core Total Antibody Negative (Negative) Hepatitis C Antibody Negative (Negative) Total Bilirubin 1.6 mg/dL (0.2-1.0) Aspartate Amino Transferase (AST) 75 U/L (13-40) Alanine Aminotransferase (ALT) 52 U/L (7-40) Alkaline Phosphatase 138 U/L (46-116) Total Protein 6.4 g/dL (5.7-8.2) Albumin 3.5 g/dL (3.2-4.8) Carcinoembryonic Antigen 3.45 ng/mL (<=5.0) Troponin I High Sensitivity 4 ng/L (</=34) Test 04/18/25 10:28 Direct Bilirubin 0.8 mg/dL (<0.3) B-Type Natriuretic Peptide 268.19 pg/mL (0-100) Vitamin B12 Level 809 pg/mL (211-911) Vitamin D 25-Hydroxy 27.3 ng/mL (30.0-100) Thyroid Stimulating Hormone (TSH) 2.46 uIU/mL (0.55-4.78) Free Thyroxine (T4) Calculated 1.29 ng/dL (0.89-1.76) Other Laboratory Tests 04/23/25 05:08 Brief Hx & Hospital Course: Yolanda Ribeiro is a 65 year old female who presented to the ED with the complaint of swelling in both legs since 1 month. Patient mentioned she had swelling in both lower legs which has progressed to upper legs and lower abdomen and elevation of the feet reduced the swelling. She denied any shortness of breath, fatigue and weakness. Patient also mentioned she has had pain in the back since the last 1 week. Patient stated that she had the pain on and off, is 5/10 in intensity and nonradiating. Patient was started on lasix 40mg iv bid for the pedal edema. Her leg swelling reduced during the hospitalization.Labs showed raised bilirubin ,AST, ALT and ALP. Chest x-ray showed cardiomegaly with pulmonary vascular congestion. Liver ultrasound showed 5.4 x 4.9 x 4.5 cm ill- defined heterogeneous mass right lobe of the liver. Duplex venous study showed No right or left lower extremity deep venous thrombosis. CA 19-9 was 45 and CA- 125 was 39.8, AFP was 9.1. CT abdomen showed hypervascular right hepatic lobe lesion measuring 9.5 x 7 cm, cirrhotic morphology of the liver, cholelithiasis and atherosclerotic vascular disease. IR consult was placed for biopsy of the hepatic mass. IR mentioned no clear target for liver biopsy procedure until MRI with contrast is done for further evaluation of the liver. Ultrasound was done which showed heterogeneous appearance of the uterus. The patient was discharged home in a stable condition. All medications and recommendations were thoroughly explained to the patient and she demonstrated understanding of the same. She was advised to follow-up in discharge Clinic and with PCP for further evaluation of the liver mass with MRI with contrast. Past medical history: Hypertension Past surgical history: Tubal ligation Home medications: Lisinopril 40 once daily, metoprolol 50 mg once daily, sertraline 100 mg once daily, valacyclovir 500 mg once daily Social & Personal history: lives at home with family Smoking:denies alcohol:drinks 4 glasses of wine everyday for the last 15-20 years Operations or Procedures 1.PROCEDURE(s): CXRP - CHEST PORTABLE REASON: sob ORDER NUMBER(s): [id number], ACCESSION NUMBER(s): [id number] EXAM: XY CHEST PORTABLE Indication: sob Technique: Single frontal view of the chest was obtained Comparison: None FINDINGS: Lines and Tubes: None Lungs: No focal consolidation. Mild pulmonary vascular congestion. Pleura: No effusion. No pneumothorax. Cardiomediastinal contours: Cardiomegaly. Bones: No acute osseous abnormality. IMPRESSION: Cardiomegaly with mild pulmonary vascular congestion. 2.PROCEDURE(s): LIVUS - LIVER REASON: transamnitis ORDER NUMBER(s): [id number], ACCESSION NUMBER(s): [id number] INDICATION: transamnitis TECHNIQUE: Multiple real-time sonographic images of the abdomen were obtained. COMPARISON: None FINDINGS: Hepatic parenchyma demonstrates coarse echogenic appearance consistent with steatosis. The liver measures 12.53 cm. No intrahepatic biliary ductal dilatation is noted. Hypoechoic mass right lobe of the liver measuring 5.38 x 4.95 by [address] of the abdomen with contrast. The gallbladder wall measures 2.38 mm cm and is unremarkable. No gallstones or sludge is seen. The common duct measures 5.35 mm cm and is unremarkable. No pericholecystic fluid is noted. Negative sonographic Lopez's sign The right kidney measures 10.78 cm. No hydronephrosis. The pancreas is not well visualized due to obscuration from bowel gas. The visualized portions of the IVC and aorta are grossly unremarkable. IMPRESSION: 1. 12.5 cm liver with parenchymal changes consistent with steatosis 2. 5.4 x 4.9 x 4.5 cm ill-defined heterogeneous mass right lobe of the liver consider re-evaluation with CT abdomen with contrast. 3.PROCEDURE(s): BLDVT - BiLat Lower DVT REASON: To rule out dVT ORDER NUMBER(s): [id number], ACCESSION NUMBER(s): [id number] US BiLat Lower DVT HISTORY: To rule out dVT COMPARISON: None TECHNIQUE: Duplex doppler evaluation of the deep venous system of the lower extremity from the common femoral veins, superficial femoral vein, great saphenous vein, deep femoral vein, popliteal vein, and calf veins, including color doppler and spectral/pulsed waveform analysis, was performed. FINDINGS: Right: - Common femoral vein: Compressible - Deep femoral vein: Compressible - Femoral vein: Compressible - Popliteal vein: Compressible - Other: Nothing Left: - Common femoral vein: Compressible - Deep femoral vein: Compressible - Femoral vein: Compressible - Popliteal vein: Compressible - Other: Nothing IMPRESSION: No right or left lower extremity deep venous thrombosis. 4.PROCEDURE(s): ABPEL - CT AB PELVIS W WO CON-IV ONLY REASON: LIVER MASS ORDER NUMBER(s): [id number], ACCESSION NUMBER(s): [id number] Indication: LIVER MASS Technique: CT axial images of the abdomen and pelvis are obtained with and without contrast. Coronal and sagittal reformats were obtained. Comparison: 04/18/2025 FINDINGS: Cardiomegaly lung bases demonstrate atelectasis. Renal glands are unremarkable. Spleen measures 13 cm AP. Pancreas unremarkable. Cholelithiasis. Cirrhotic morphology liver. There is a right hepatic dome hypervascular lesion measuring 9.5 x 7 cm which demonstrates hypervascularity on the portal venous and 5 minute delayed images. The kidneys demonstrate no hydronephrosis. Stomach is partially distended. Small bowel loops are normal in caliber. Moderate volume stool in the colon. Normal appendix. Abdominal aortic atherosclerotic disease. Bladder is partially distended. No free pelvic fluid. No inguinal lymphadenopathy. Soft tissue edema/ anasarca. Moderate lumbar degenerative disc disease and facet hypertrophic changes. IMPRESSION: Hypervascular lesion on the arterial, venous and delayed phases within the right hepatic lobe measuring 9.5 x 7 cm. Recommend multiphasic MRI abdomen with and without contrast to further characterize. No definitive washout seen. Correlate with alpha fetoprotein levels. Consideration could also be given to tissue sampling Cirrhotic morphology liver, splenomegaly. Cholelithiasis. Atherosclerotic disease. Moderate volume stool within the colon. 5.PROCEDURE(s): PELUS - PELVIC REASON: rule out any uterine or oarian mass ORDER NUMBER(s): [id number], ACCESSION NUMBER(s): [id number] INDICATION: rule out any uterine or oarian mass TECHNIQUE: Multiple real-time grayscale transabdominal sonographic images along with color and duplex Doppler of the uterus and ovaries were obtained. Patient refused transvaginal examination COMPARISON: None FINDINGS: The uterus measures 8.3 x 4 x 5.4 cm. Uterus appears heterogeneous. The endometrial stripe measures 9.1 mm. The right ovary NOT visual The left ovary not visualized IMPRESSION: 1. Uterus appears heterogeneous 2. Ovaries not visualized bilaterally. 3. No adnexal masses. 6.PROCEDURE(s): THOUS - US GUIDANCE FOR NEEDLE PLACEME REASON: LIVER MASS BIOPSY ORDER NUMBER(s): [id number], ACCESSION NUMBER(s): [id number] US US GUIDANCE FOR NEEDLE PLACEME, HISTORY: LIVER MASS BIOPSY TECHNICAL DATA: Transverse and longitudinal sonographic images were obtained of the Liver. COMPARISON: US PELVIC on DOS: 04/20/25, US BILAT LOWER DVT on DOS: 04/19/25, US LIVER on DOS: 04/18/25 FINDINGS: Ultrasound guidance for liver biopsy terminated because there was no clear defined mass. Ill-defined heterogeneous liver parenchymal in the right hepatic lobe within a background of cirrhosis was seen. IMPRESSION: No clear target for liver biopsy. Procedure deferred until able to obtain an abdominal MRI w/ contrast for further evaluation of the liver. Condition at Discharge: Fair Final Diagnosis/Problems List Pulmonary edema Hypertensive urgency Ruled out CHF Possible hepatocellular carcinoma,follow up with MRI HYpokalemia,repleted Cholelithiasis Hypokalemia Discharge Disposition: Home Discharge Instruct/Medications Diet: Cardiac 2g Na,low cholest Activity: No Restrictions, As Tolerated Follow Up/Referral: follow up with PCP for MRI abdomen follow up in [facility] Scheduled Furosemide (Lasix), 1 TAB PO DAILY Lisinopril (Lisinopril), 40 MG PO DAILY, (Reported) Metoprolol Tartrate (Metoprolol Tartrate), 50 MG PO DAILY, (Reported) Sertraline Hcl (Zoloft), 100 MG PO DAILY, (Reported) Spironolactone (Spironolactone), 1 TAB PO DAILY Discontinued Medications Valacyclovir Hcl (Valtrex), 500 MG PO DAILY, (Reported) Discharge Statement: "Patient was advised to return to the ER or call 911 if any headaches, dizziness, shortness of breath, chest pain, abdominal pain, bleeding, fevers, or worsening of medical condition. Patient was counseled about treatment plan, medications, possible side effects, patientverbalized understanding. All questions were answered to the best of my ability. This discharge took greater then 30 minutes in planning, reviewing documentation, counseling the patient, and discussing with other team members." ASSESSMENT ASSESSMENT Assessment Pulmonary edema Hypertensive urgency Ruled out CHF Possible hepatocellular carcinoma Hypokalemia Date of Service: Apr 23, 2025 Billing Provider: GOPI DIXON MD Common Visit Codes: 79008-HLG/OBS DISCH DAY >30min SANAZ HONG RESIDENT Apr 23, 2025 13:30 GOPI DIXON MD Apr 23, 2025 22:21
[2025-04-23 14:24] VITALS: BP 137/76; PULSE 88; RESP 20; TEMP 98.1; O2SAT 98
[2025-04-23] MEDS ORDERED: FURO1TAB33 PO (14:44)
[2025-04-23] MEDS ORDERED: SPIR25TA8 PO (14:44)
== END 2025-04-23 15:00 | disposition home or self-care (01) | DRG 556 ==
LOC: ER 09:52 → OVERFLOW 16:49 → WEST WING 19:25
PROVIDERS: ADMIT Internal Medicine; ATTEND Internal Medicine
DX: M79.89 Other specified soft tissue disorders (principal); C22.0 Liver cell carcinoma; J81.1 Chronic pulmonary edema; I16.0 Hypertensive urgency; K80.20 Calculus of gallbladder without cholecystitis without obstruction; D69.6 Thrombocytopenia, unspecified; K74.60 Unspecified cirrhosis of liver; E87.6 Hypokalemia; I10 Essential (primary) hypertension; F32.A Depression, unspecified; R16.2 Hepatomegaly with splenomegaly, not elsewhere classified; Z98.51 Tubal ligation status
CPT/HCPCS: 36415; 71045; 74178; 76705; 76856; 76942; 80048; 80053; 80076; 81001; 82105; 82306; 82378; 82607; 83036; 83880; 84439; 84443; 84484; 85007; 85025; 85027; 85610; 85730; 86301; 86304; 86704; 86706; 86708; 86803; 87340; 93005; 93306; 93970; 99291; G0378; J2003; J2250